=== PATIENT | male | born 1965 | race Caucasian/White ===

== ENCOUNTER 2016-07-11 18:21 | Emergency (ER) | payer SELFPAY ==
[~2016-07-11] VITALS: Ht 175.3 cm; Wt 84.0 kg
[~2016-07-11 18:21] MED LIST: ASPI81TA82 PO; HYDR-3580 PO; PRAV80 PO; RANI150 PO
[2016-07-11 18:24] VITALS: BP 160/100; PULSE 103; RESP 17; TEMP 98.4; O2SAT 99
--- NOTE | 2016-07-11 18:42 | PD ---
HPI . acute t-l spine pain since yesterdal Chief Complaint: Pain: Acute or Chronic Time Seen by Provider: 18:41 Travel History International Travel<30 days: No Contact w/Intl Traveler<30days: No Traveled to known affect area: No History of Present Illness HPI 51-year-old male here with complaints of left sided back pain that occurred yesterday after falling on a lawnmower. Patient says he was outside and accidentally slipped and fell and hit his back on his lawnmower. He is complaining of pain in the left lower thoracic upper lumbar area. It is shifted over to the left. He does not have any spinal process tenderness. He denies any bowel or bladder dysfunction. He tells me that he has a history of chronic back issues and has some bulging discs, but this pain is more on the left side and does not feel similar to his other pain. He tells me that the pain was okay until he started coughing frequently. He does report a long- standing history of smoking. He denies any fever or chills. He has no other complaints. PFSH Past Medical History Blood Disorders: No Cardiovascular Problems: No Diminished Hearing: No Endocrine: No Genitourinary: No Musculoskeletal: No Neurologic: No Psychiatric: No Reproductive: No Respiratory: No Past Surgical History Other Surgery: Yes (CYST REMOVAL) Social History Alcohol Use: Yes (6PK/DAY) Tobacco Use: Yes (1.5 PPD) Substance Use: No Allergies-Medications (Allergen,Severity, Reaction): Coded Allergies: No Known Allergies (Unverified , 02/15/13) Reported Meds & Prescriptions Reported Meds & Active Scripts Active Proair Hfa 8.5 GM Inh (Albuterol Sulfate) 90 Mcg/Act Aer 2 Puff INH Q6H PRN 108 mcg/actuation Robaxin (Methocarbamol) 500 Mg Tab 500 Mg PO TID Prednisone 50 Mg Tab 50 Mg PO DAILY Reported Hydrocodone/Acetaminophen 7.5 mg/325 mg 7.5 Mg/325 Mg Tab 1 Tab PO Q6H PRN Aspir-81 (Aspirin) 81 Mg Tab 81 Mg PO DAILY Zantac 150 Mg Tab (Ranitidine HCl) 150 Mg Tab 150 Mg PO BID Pravachol 80 Mg Tab (Pravastatin Sod) 80 Mg Tab 80 Mg PO DAILY Review of Systems General / Constitutional: No: Fever Eyes: No: Visual changes HENT: No: Headaches Cardiovascular: No: Chest Pain or Discomfort Respiratory: No: Shortness of Breath Gastrointestinal: No: Abdominal Pain Genitourinary: No: Dysuria Musculoskeletal: Positive: Pain (t-l spine) Skin: No Rash Neurologic: No: Weakness Psychiatric: No: Depression Endocrine: No: Polydipsia Hematologic/Lymphatic: No: Easy Bruising Physical Exam Narrative GENERAL: AAO x 3, no acute distress, Well-nourished, well-developed patient. SKIN: Warm and dry. No visible rashes or bruising. no bruising to the back HEAD: Normocephalic and atraumatic. EYES: No scleral icterus. No injection or drainage. ENT: No nasal drainage noted. Mucous membranes pink. Airway patent. NECK: Supple, trachea midline. No JVD. CARDIOVASCULAR: Regular rate and rhythm without murmurs, gallops, or rubs. RESPIRATORY: Breath sounds equal bilaterally. No accessory muscle use. No rhonchi or rales. slight wheeze on expiration. GASTROINTESTINAL: visual inspection normal EXTREMITIES: No cyanosis or edema. ambulatory BACK: No obvious deformity. No CVA tenderness. paraspinal tenderness on the left side lower t spine upper lumbar area. Flexion and extension normal. SLR negative b/l. no spinous process tenderness. NEURO: sensation intact, strength normal PSYCH: AAO x 3, normal affect. Data Data Last Documented VS Vital Signs Date Time Temp Pulse Resp B/P Pulse Ox O2 Delivery O2 Flow Rate FiO2 07/11/16 18:24 98.4 103 17 160/100 99 MDM Medical Decision Making Medical Screen Exam Complete: Yes Emergency Medical Condition: Yes Medical Record Reviewed: Yes Differential Diagnosis muscle strain, lumbago, less likely lumbar radiculopathy Narrative Course In summary this is a 51-year-old male status post fall onto his lawnmower, here with complaints of left mid to low back pain. He does not have any spinal process tenderness. Pain is located in his paraspinal muscles. I have done a thorough examination. Imaging is not indicated. I recommend a course of muscle relaxers to help loosen the sore muscles in this area. He does have what appears to be bronchitis. He has some slight wheezing on examination. I will go ahead and treat him with steroids and albuterol inhaler. I've advised him that he will need follow-up with his primary care provider. Patient verbalized understanding of instructions, questions were answered, and thanked me for their care. I advised them if their condition worsens, please return to the nearest emergency room for further care. Diagnosis Primary Impression: Muscle strain Additional Impression: Bronchitis Patient Instructions: Acute Bronchitis (ED), General Instructions, Muscle Strain (ED) Additional Instructions: As we discussed the cough can last 6-8 weeks. Take medications as prescribed. If you are a smoker, try to quit. Follow up with your primary care provider. If you develop sudden onset or worsening of shortness or breath, please go to the nearest emergency room. Muscle relaxers can cause drowsiness. Do not drive, swim or operate heavy machinery while using these medications. Please return to emergency department if your symptoms return or worsen. Follow up with your primary care provider. Take medications as prescribed. Med/Other Pt SpecificInfo: Prescription(s) given Scripts Albuterol 8.5 GM Inh (Proair Hfa 8.5 GM Inh)90 Mcg/Act Aer2 Puff INH Q6H PRN ( SHORTNESS OF BREATH) #1 INHALER Ref 0 108 mcg/actuation Prov:Michelle Barton MD 07/11/16 Methocarbamol (Robaxin)500 Mg [id number] Mg PO TID #21 TAB Prov:Michelle Barton MD 07/11/16 Prednisone 50 Mg Tab50 Mg PO DAILY #5 TAB Prov:Michelle Barton MD 07/11/16 Disposition: 01 DISCHARGE HOME Condition: Stable Rosio Griffin July 11, 2016 18:42
[2016-07-11] MEDS ORDERED: PRED50 PO (18:46)
[2016-07-11] MEDS ORDERED: ROBA500T PO (18:46)
[2016-07-11] MEDS ORDERED: ALBUAER3 INH (18:51)
== END 2016-07-11 19:24 | disposition home or self-care (01) ==
LOC: NEPK 18:21
DX: S39.012A Strain of muscle, fascia and tendon of lower back, initial encounter (principal); S29.012A Strain of muscle and tendon of back wall of thorax, initial encounter; J40 Bronchitis, not specified as acute or chronic; F17.200 Nicotine dependence, unspecified, uncomplicated; W01.198A Fall on same level from slipping, tripping and stumbling with subsequent striking against other object, initial encounter
CPT/HCPCS: 99283

== ENCOUNTER 2017-06-15 07:43 | Inpatient (IN) | payer SELFPAY ==
[~2017-06-15] VITALS: Ht 180.3 cm; Wt 75.5 kg
[2017-06-15 07:48] VITALS: BP 104/64; PULSE 93; RESP 18; TEMP 97.4; O2SAT 100
[2017-06-15 08:13] LABS: BILIRUBIN, URINE NEG (NEG); BLOOD, URINE NEG (NEG); GLUCOSE,URINE NEG (NEG); KETONE, URINE NEG (NEG); MUCUS URINE MOD /lpf (OCC); NITRITE,URINE NEG (NEG); PH, URINE 5.5 (5.0-8.5); SQUAMOUS EPITHELIAL CELL URINE <1 /hpf (0-5); URINE COLOR YELLOW (YELLW/STRAW); URINE LEUKOCYTE ESTERASE NEG (NEG)
[2017-06-15 08:16] LABS: AUTOMATED NEUTROPHIL # 10.8 TH/MM3 (1.8-7.7); BASOPHIL # 0.1 TH/MM3 (0-0.2); BASOPHIL % 0.6 % (0.0-2.0); EOSINOPHIL # 0.1 TH/MM3 (0-0.4); EOSINOPHIL % 0.9 % (0.0-4.0); HEMATOCRIT 53.4 % (39.0-51.0); HEMOGLOBIN 18.6 GM/DL (13.0-17.0); LYMPH % 14.9 % (9.0-44.0); LYMPHOCYTE # 2.2 TH/MM3 (1.0-4.8); MEAN CELL VOLUME 93.6 FL (80.0-100.0); MEAN CORPUSCULAR HEMOGLOBIN 32.7 PG (27.0-34.0); MEAN CORPUSCULAR HGB CONC 34.9 % (32.0-36.0); MEAN PLATELET VOLUME 8.4 FL (7.0-11.0); MONO % 9.2 % (0.0-8.0); MONOCYTE # 1.3 TH/MM3 (0-0.9); NEUT % 74.4 % (16.0-70.0); PLATELET COUNT 368 TH/MM3 (150-450); RED CELL DISTRIBUTION WIDTH 12.8 % (11.6-17.2); WHITE BLOOD COUNT 14.5 TH/MM3 (4.0-11.0)
[2017-06-15] MEDS ORDERED: blood pressure PO (08:20)
[2017-06-15 08:32] LABS: ALBUMIN 3.9 GM/DL (3.4-5.0); AST (GOT) 16 U/L (15-37); BICARBONATE 22.6 MEQ/L (21.0-32.0); BLOOD UREA NITROGEN 7 MG/DL (7-18); CALCIUM 9.5 MG/DL (8.5-10.1); CHLORIDE 108 MEQ/L (98-107); CREATININE 0.77 MG/DL (0.60-1.30); GLOMERULAR FILTRATION RATE 107 ML/MIN (>89); GLUCOSE,RANDOM 108 MG/DL (74-106); SODIUM (NA) 139 MEQ/L (136-145)
[2017-06-15 08:39] LABS: ALKALINE PHOSPHATASE 69 U/L (45-117); ALT (GPT) 20 U/L (12-78); TOTAL BILIRUBIN ADULT 0.4 MG/DL (0.2-1.0)
--- NOTE | 2017-06-15 08:52 | PD ---
HPI Chief Complaint: Abdominal Pain Time Seen by Provider: 08:10 Travel History International Travel<30 days: No Contact w/Intl Traveler<30days: No Traveled to known affect area: No History of Present Illness HPI Is a 52-year-old man presents to the emergency department complaining of mid and upper abdominal pain. Patient states he started feeling well couple weeks ago. Was feeling much better and then today started having the pain more severe again. Was drinking alcohol daily, but stopped after the pain developed. No nausea or vomiting. Bowel movements been normal. He has not had the pain in the past. No NSAIDs. No tobacco. No history of abdominal surgeries. Pain was severe today and so he came to the emergency department. History Past Medical History Narrative Medical History of daily alcohol use, stopped a couple weeks ago Hypertension Social History Alcohol Use: Yes (6 per day) Tobacco Use: Yes (1 1/2 jaylen per day) Allergies-Medications (Allergen,Severity, Reaction): Coded Allergies: No Known Allergies (Unverified Adverse Reaction, Unknown, 06/15/17) Reported Meds & Prescriptions Reported Meds & Active Scripts Active Reported [blood pressure ] PO BID Review of Systems Except as stated in HPI: all other systems reviewed are Neg Physical Exam Narrative GENERAL: Well-appearing 52-year-old man, no acute distress. SKIN: Focused skin assessment warm/dry. HEAD: Atraumatic. Normocephalic. EYES: Pupils equal and round. No scleral icterus. No injection or drainage. ENT: No nasal bleeding or discharge. Mucous membranes pink and moist. NECK: Trachea midline. No JVD. CARDIOVASCULAR: Regular rate and rhythm. No murmur appreciated. RESPIRATORY: No accessory muscle use. Clear to auscultation. Breath sounds equal bilaterally. GASTROINTESTINAL: Abdomen is flat and soft. There is moderate right lower quadrant tenderness with a little bit of voluntary guarding. No right upper abdominal tenderness. Negative Lopez's. Minimal epigastric tenderness. MUSCULOSKELETAL: No obvious deformities. No clubbing. No cyanosis. No edema. NEUROLOGICAL: Awake and alert. No obvious cranial nerve deficits. Motor grossly within normal limits. Normal speech. PSYCHIATRIC: Appropriate mood and affect; insight and judgment normal. Data Data Last Documented VS Vital Signs Date Time Temp Pulse Resp B/P (MAP) Pulse Ox O2 Delivery O2 Flow Rate FiO2 06/15/17 07:48 97.4 93 18 104/64 (77) 100 Orders Orders Complete Blood Count With Diff (06/15/17 07:53) Comprehensive Metabolic Panel (06/15/17 07:53) Urinalysis - C+S If Indicated (06/15/17 07:53) Lipase (06/15/17 07:53) Iv Access Insert/Monitor (06/15/17 08:11) Ct Abd/Pel W Iv Contrast(Rout) (06/15/17 ) Iohexol 350 Inj (Omnipaque 350 Inj) (06/15/17 09:08) Admit Order (Ed Use Only) (06/15/17 ) Labs Laboratory Tests Test 06/15/17 08:01 White Blood Count 14.5 TH/MM3 Red Blood Count 5.70 MIL/MM3 Hemoglobin 18.6 GM/DL Hematocrit 53.4 % Mean Corpuscular Volume 93.6 FL Mean Corpuscular Hemoglobin 32.7 PG Mean Corpuscular Hemoglobin Concent 34.9 % Red Cell Distribution Width 12.8 % Platelet Count 368 TH/MM3 Mean Platelet Volume 8.4 FL Neutrophils (%) (Auto) 74.4 % Lymphocytes (%) (Auto) 14.9 % Monocytes (%) (Auto) 9.2 % Eosinophils (%) (Auto) 0.9 % Basophils (%) (Auto) 0.6 % Neutrophils # (Auto) 10.8 TH/MM3 Lymphocytes # (Auto) 2.2 TH/MM3 Monocytes # (Auto) 1.3 TH/MM3 Eosinophils # (Auto) 0.1 TH/MM3 Basophils # (Auto) 0.1 TH/MM3 CBC Comment DIFF FINAL Differential Comment Urine Color YELLOW Urine Turbidity CLEAR Urine pH 5.5 Urine Specific [place] 1.020 Urine Protein TRACE mg/dL Urine Glucose (UA) NEG mg/dL Urine Ketones NEG mg/dL Urine Occult Blood NEG Urine Nitrite NEG Urine Bilirubin NEG Urine Urobilinogen 2.0 MG/DL Urine Leukocyte Esterase NEG Urine RBC 2 /hpf Urine WBC 2 /hpf Urine Squamous Epithelial Cells <1 /hpf Urine Mucus MOD /lpf Microscopic Urinalysis Comment CULT NOT INDICATED Blood Urea Nitrogen 7 MG/DL Creatinine 0.77 MG/DL Random Glucose 108 MG/DL Total Protein 8.0 GM/DL Albumin 3.9 GM/DL Calcium Level 9.5 MG/DL Alkaline Phosphatase 69 U/L Aspartate Amino Transf (AST/SGOT) 16 U/L Alanine Aminotransferase (ALT/SGPT) 20 U/L Total Bilirubin 0.4 MG/DL Sodium Level 139 MEQ/L Potassium Level 3.9 MEQ/L Chloride Level 108 MEQ/L Carbon Dioxide Level 22.6 MEQ/L Anion Gap 8 MEQ/L Estimat Glomerular Filtration Rate 107 ML/MIN Lipase 768 U/L [facility] Medical Decision Making Medical Screen Exam Complete: Yes Emergency Medical Condition: Yes Interpretation(s) LABS: CBC remarkable for mild leukocytosis. Hemoglobin is a little bit elevated. CMP is generally unremarkable. Lipase [address] abdomen and pelvis: Abnormally appearing ascending colon, obstructive, more likely, versus inflammatory. Differential Diagnosis Gastritis, pancreatitis, peptic ulcer disease, appendicitis, cholecystitis, other Narrative Course Medical decision making 52-year-old man who by history likely has gastritis or peptic ulcer disease. On exam however he has significant right lower quadrant tenderness concerning for appendicitis. Will check labs, check CT, likely treatment with antacid/PPI. FINAL: CT scan shows distention of the proximal/ascending large bowel with the period of what appears to be transition with some bowel wall dilatation and edema with inflammatory changes proximally. No definite mass seen. Possibly inflammatory versus more likely obstructive. I spoke with Dr. Barriga, radiologist. We will plan on admission for further evaluation, likely GI consult. Diagnosis Primary Impression: Large bowel obstruction Admitting Information Admitting Physician Requests: Admit David Calvin MD Jun 15, 2017 08:52
[2017-06-15] MEDS ORDERED: IOHEXOL 350 MG/ML 10 ML VIAL (for RAD DIAG) IVCONTRAST ONE (09:08)
--- NOTE | 2017-06-15 10:03 | RADRPT ---
EXAM DATE/TIME: 06/15/2017 09:06 [facility] COMPARISON: No previous studies available for comparison. INDICATIONS : Epigastric pain IV CONTRAST: 97 cc Omnipaque 350 (iohexol) IV ORAL CONTRAST: No oral contrast ingested. RADIATION DOSE: 7.23 CTDIvol (mGy) MEDICAL HISTORY : Hypertension. SURGICAL HISTORY : None. ENCOUNTER: Initial ACUITY: 1 day PAIN SCALE: 6/10 LOCATION: upper quadrant TECHNIQUE: Volumetric scanning of the abdomen and pelvis was performed. Using automated exposure control and ad justment of the mA and/or kV according to patient size, radiation dose was kept as low as reasonably achievable to obtain optimal diagnostic quality images. DICOM format image data is available electro nically for review and comparison. FINDINGS: The lung base is are clear. The liver, spleen pancreas and adrenal glands are unremarkable. There is symmetrical renal function with small right renal cyst.. The ascending colon is abnormal with inflammatory changes and bowel wall thickening. This is suspici ous for an inflammatory process such as typhlitis or an obstructive process at the flexure. The area just above this is collapsed and I cannot entirely exclude mass.. I can't seen normal appendix but this be very unusual appearance for such. Pelvic contents are unremarkable. CONCLUSION: Abnormally ascending colon obstructive, most likely versus inflammatory.. There is s ome dilatation with bowel wall thickening. Trace ascites is evident. . Thomas Barriga MD FACR on June 15, 2017 at 9:55 Board Certified Radiologist. This report was verified electronically.
[2017-06-15] MEDS ORDERED: LACTULOSE SYRUP 20 GM/30 ML CUP PO PRN (11:30)
[2017-06-15] MEDS ORDERED: NALOXONE HCL 0.4 MG/ML AMP IV PUSH PRN (11:30)
[2017-06-15] MEDS ORDERED: SODIUM CHLORIDE 0.9% FLUSH 10 ML FLUSH IV FLUSH PRN (11:30)
[2017-06-15] MEDS ORDERED: ONDANSETRON HCL 4 MG/2 ML VIAL IVP PRN (11:30)
[2017-06-15] MEDS ORDERED: BISACODYL 10 MG SUPP RECTAL PRN (11:30)
[2017-06-15] MEDS ORDERED: MAGNESIUM HYDROXIDE SUSP 30 ML CUP PO PRN (11:30)
[2017-06-15] MEDS ORDERED: SENNOSIDES 8.6 MG TAB PO PRN (11:30)
--- NOTE | 2017-06-15 12:34 | PD.CONS ---
HPI History of Present Illness This is a 52 year old male who presented to ER with abd pain. The pain is in the umbilical region, does not radiate. Onset 2 weeks ago and was severe, lessened, and then worsened again last night. Pain is worse at night and worse after eating. he has had a few episodes loose stool. He has noticed some black stool intermittently. No n/v, chance blood in stool, significant unintended weight loss. Never had pain like this before. hehad a formed BM yesterday. He is passing flatus. Never colonoscopy or EGD. PFSH Past Medical History HTN Past Surgical History carotid endarterectomy Coded Allergies: No Known Allergies (Unverified Adverse Reaction, Unknown, 06/15/17) Family History denies Social History etoh - daily until 2 weeks per day, 6pk or more per day smokes 1 ppd denies illicit drugs Review of Systems Constitutional: DENIES: Fever Endocrine: DENIES: Polydipsia Eyes: DENIES: Blurred vision Ears, nose, mouth, throat: DENIES: Hearing loss Respiratory: DENIES: Cough Cardiovascular: DENIES: Chest pain Gastrointestinal: COMPLAINS OF: Abdominal pain, Black stools, DENIES: Bloody stools, Nausea, Vomiting, Hematemesis Genitourinary: DENIES: Hematuria Musculoskeletal: DENIES: Joint Swelling Integumentary: DENIES: Abnormal pigmentation Hematologic/lymphatic: DENIES: Bruising Immunologic/allergic: DENIES: Eczema Neurologic: DENIES: Abnormal gait Psychiatric: DENIES: Confusion GI Exam Vitals I&O Vital Signs Date Time Temp Pulse Resp B/P (MAP) Pulse Ox O2 Delivery O2 Flow Rate FiO2 06/15/17 07:48 97.4 93 18 104/64 (77) 100 Imaging Last Impressions Abdomen/Pelvis CT 06/15/17 0000 Signed Impressions: Service Date/Time: Thursday, June 15, 2017 09:06 - CONCLUSION: Abnormally ascending colon obstructive, most likely versus inflammatory.. There is some dilatation with bowel wall thickening. Trace ascites is evident. . Thomas Barriga MD FACR Laboratory Test 06/15/17 08:01 White Blood Count 14.5 TH/MM3 Red Blood Count 5.70 MIL/MM3 Hemoglobin 18.6 GM/DL Hematocrit 53.4 % Mean Corpuscular Volume 93.6 FL Mean Corpuscular Hemoglobin 32.7 PG Mean Corpuscular Hemoglobin Concent 34.9 % Red Cell Distribution Width 12.8 % Platelet Count 368 TH/MM3 Mean Platelet Volume 8.4 FL Neutrophils (%) (Auto) 74.4 % Lymphocytes (%) (Auto) 14.9 % Monocytes (%) (Auto) 9.2 % Eosinophils (%) (Auto) 0.9 % Basophils (%) (Auto) 0.6 % Neutrophils # (Auto) 10.8 TH/MM3 Lymphocytes # (Auto) 2.2 TH/MM3 Monocytes # (Auto) 1.3 TH/MM3 Eosinophils # (Auto) 0.1 TH/MM3 Basophils # (Auto) 0.1 TH/MM3 CBC Comment DIFF FINAL Differential Comment Urine Color YELLOW Urine Turbidity CLEAR Urine pH 5.5 Urine Specific [place] 1.020 Urine Protein TRACE mg/dL Urine Glucose (UA) NEG mg/dL Urine Ketones NEG mg/dL Urine Occult Blood NEG Urine Nitrite NEG Urine Bilirubin NEG Urine Urobilinogen 2.0 MG/DL Urine Leukocyte Esterase NEG Urine RBC 2 /hpf Urine WBC 2 /hpf Urine Squamous Epithelial Cells <1 /hpf Urine Mucus MOD /lpf Microscopic Urinalysis Comment CULT NOT INDICATED Blood Urea Nitrogen 7 MG/DL Creatinine 0.77 MG/DL Random Glucose 108 MG/DL Total Protein 8.0 GM/DL Albumin 3.9 GM/DL Calcium Level 9.5 MG/DL Alkaline Phosphatase 69 U/L Aspartate Amino Transf (AST/SGOT) 16 U/L Alanine Aminotransferase (ALT/SGPT) 20 U/L Total Bilirubin 0.4 MG/DL Sodium Level 139 MEQ/L Potassium Level 3.9 MEQ/L Chloride Level 108 MEQ/L Carbon Dioxide Level 22.6 MEQ/L Anion Gap 8 MEQ/L Estimat Glomerular Filtration Rate 107 ML/MIN Lipase 768 U/L Physical Examination HEENT: PERRL; normocephalic; atraumatic; no jaundice. CHEST: CTA, diminished CARDIAC: RRR ABDOMEN: Soft, nondistended, nontender; no hepatosplenomegaly; bowel sounds are present in all four quadrants. EXTREMITIES: No clubbing, cyanosis, or edema. SKIN: Normal; no rash; no jaundice. DIRECTOR OF MEDIA: No focal deficits; alert and oriented times three. Assessment and Plan Plan ASSESSMENT - abd pain, abnormal imaging - onset 2 weeks ago. recent worsening. umbilical region. intermittnet, worse after eating, worse at night. CT showed abnormal ascending colon, inflammation vs obstructive process. never had colonoscopy or EGD + BM yesterday formed, + flatus - ? melena - pt admits few episodes black tarry stool in last few weeks no anemia currently - leukocytosis - wbc 14.5 on admission PLAN - EGD and colonoscopy in am - obtain consent - clears today - NPO after midnight - mg citrate prep - monitor lipase - monitor labs - pain mgmt - further recs to follow pt seen by myself and Dr Jara and this note is on her behalf Eva Villarreal Jun 15, 2017 12:34
[2017-06-15 12:42] VITALS: BP 137/98; PULSE 86; RESP 16; O2SAT 97
[2017-06-15] MEDS: ENOXAPARIN SODIUM 40 MG/0.4 ML SYRINGE SQ SCH (13:44)
[2017-06-15 16:00] VITALS: BP 97/68; PULSE 84; RESP 16; TEMP 97.8; O2SAT 98
[2017-06-15] MEDS ORDERED: MAGNESIUM CITRATE SOLN 300 ML BTL PO ONE ×2 (16:00→18:00)
[2017-06-15] MEDS ORDERED: LISI-515 PO ×2 (17:27→17:30)
[2017-06-15] MEDS ORDERED: AMLO5TAB2 PO (17:32)
[2017-06-15 17:39] VITALS: O2SAT 97
--- NOTE | 2017-06-15 18:20 | HHI.HP ---
[facility] Service [facility] Primary Care Physician Unknown Admission Diagnosis Large bowel obstruction versus colitis Diagnoses: Travel History International Travel<30 Days: No Contact w/Intl Traveler <30 Da: No Traveled to Known Affected Are: No History of Present Illness 52-year-old male who presents to the ER today complaining of central and right- sided abdominal pain. He denies any fevers denies nausea, denies vomiting. He experienced a similar pain about 2 weeks ago and stopped drinking alcohol at that time. The pain subsided but has returned today worse than ever. He has no history of previous surgeries. 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 He denies any trauma to that area. Review of Systems Constitutional: DENIES: Diaphoretic episodes, Fatigue, Fever, Weight gain, Weight loss, Chills, Dizziness Eyes: DENIES: Blurred vision, Diplopia, Eye inflammation, Eye pain Ears, nose, mouth, throat: DENIES: Tinnitus, Hearing loss, Vertigo, Ear Pain, Running Nose, Epistaxis, Sinus Pain Respiratory: DENIES: Apneas, Cough, Snoring, Wheezing, Hemoptysis, Sputum production Cardiovascular: DENIES: Chest pain, Palpitations, Syncope, Dyspnea on Exertion Gastrointestinal: COMPLAINS OF: Abdominal pain, DENIES: Black stools, Bloody stools, Constipation, Diarrhea, Nausea, Vomiting, Difficulty Swallowing, Anorexia Genitourinary: DENIES: Urinary frequency, Urinary incontinence Neurologic: DENIES: Abnormal gait, Headache, Localized weakness, Paresthesias, Seizures Psychiatric: DENIES: Anxiety, Confusion, Mood changes, Depression Past Family Social History Past Medical History HTN Past Surgical History carotid endarterectomy Allergies: Coded Allergies: No Known Allergies (Unverified Allergy, Unknown, 06/15/17) Family History denies Social History Drinks 6-8 beers per day, but quit 2 weeks ago smokes 1 ppd denies illicit drugs Physical Exam Vital Signs Vital Signs Date Time Temp Pulse Resp B/P (MAP) Pulse Ox O2 Delivery O2 Flow Rate FiO2 06/15/17 17:39 97 21 4/18/18 16:00 97.8 84 16 97/68 (78) 98 06/15/17 15:24 (111) 06/15/17 12:42 86 16 137/98 (111) 97 06/15/17 07:48 97.4 93 18 104/64 (77) 100 Physical Exam GENERAL: This is a well-nourished, well-developed patient, in no apparent distress. SKIN: No rashes, ecchymoses or lesions. Cool and dry. Very tanned skin HEAD: Atraumatic. Normocephalic. No temporal or scalp tenderness. EYES: Pupils equal round and reactive. Extraocular motions intact. No scleral icterus. No injection or drainage. ENT: Nose without bleeding, purulent drainage or septal hematoma. Throat without erythema, tonsillar hypertrophy or exudate. Uvula midline. Airway patent. NECK: Trachea midline. No JVD or lymphadenopathy. Supple, nontender, no meningeal signs. CARDIOVASCULAR: Regular rate and rhythm without murmurs, gallops, or rubs. RESPIRATORY: Clear to auscultation. Breath sounds equal bilaterally. No wheezes , rales, or rhonchi. GASTROINTESTINAL: Abdomen soft, tender to palpation diffusely with focus on right lower quadrant, nonacute abdomen, nondistended. No hepato-splenomegaly, or palpable masses. No guarding. MUSCULOSKELETAL: Extremities without clubbing, cyanosis, or edema. No joint tenderness, effusion, or edema noted. No calf tenderness. Negative Homans sign bilaterally. NEUROLOGICAL: Awake and alert. Cranial nerves II through XII intact. Motor and sensory grossly within normal limits. Five out of 5 muscle strength in all muscle groups. Normal speech. Laboratory Laboratory Tests Test 06/15/17 08:01 06/15/17 14:51 White Blood Count 14.5 Red Blood Count 5.70 Hemoglobin 18.6 Hematocrit 53.4 Mean Corpuscular Volume 93.6 Mean Corpuscular Hemoglobin 32.7 Mean Corpuscular Hemoglobin Concent 34.9 Red Cell Distribution Width 12.8 Platelet Count 368 Mean Platelet Volume 8.4 Neutrophils (%) (Auto) 74.4 Lymphocytes (%) (Auto) 14.9 Monocytes (%) (Auto) 9.2 Eosinophils (%) (Auto) 0.9 Basophils (%) (Auto) 0.6 Neutrophils # (Auto) 10.8 Lymphocytes # (Auto) 2.2 Monocytes # (Auto) 1.3 Eosinophils # (Auto) 0.1 Basophils # (Auto) 0.1 CBC Comment DIFF FINAL Differential Comment Urine Color YELLOW Urine Turbidity CLEAR Urine pH 5.5 Urine Specific [place] 1.020 Urine Protein TRACE Urine Glucose (UA) NEG Urine Ketones NEG Urine Occult Blood NEG Urine Nitrite NEG Urine Bilirubin NEG Urine Urobilinogen 2.0 Urine Leukocyte Esterase NEG Urine RBC 2 Urine WBC 2 Urine Squamous Epithelial Cells <1 Urine Mucus MOD Microscopic Urinalysis Comment CULT NOT INDICATED Blood Urea Nitrogen 7 Creatinine 0.77 Random Glucose 108 Total Protein 8.0 Albumin 3.9 Calcium Level 9.5 Alkaline Phosphatase 69 Aspartate Amino Transf (AST/SGOT) 16 Alanine Aminotransferase (ALT/SGPT) 20 Total Bilirubin 0.4 Sodium Level 139 Potassium Level 3.9 Chloride Level 108 Carbon Dioxide Level 22.6 Anion Gap 8 Estimat Glomerular Filtration Rate 107 Lipase 768 106 Result Diagram: 06/15/1780006/15/17 08 Caprini VTE Risk Assessment Caprini VTE Risk Assessment: Mod/High Risk (score >= 2) Caprini Risk Assessment Model Point Value = 1 Point Value = 2 Point Value = 3 Point Value = 5 Age 41-60 Minor surgery BMI > 25 kg/m2 Swollen legs Varicose veins or History of unexplained or recurrent spontaneous Oral contraceptives or hormone replacement Sepsis (< 1 month) Serious lung disease, including pneumonia (< 1 month) Abnormal pulmonary function Acute myocardial infarction Congestive heart failure (< 1 month) History of inflammatory bowel disease Medical patient at bed rest Age 61-74 Arthroscopic surgery Major open surgery (> 45 min) Laparoscopic surgery (> 45 min) Malignancy Confined to bed (> 72 hours) Immobilizing plaster cast Central venous access Age >= 75 History of VTE Family history of VTE Factor V Leiden Prothrombin [id number] Lupus anticoagulant Anticardiolipin antibodies Elevated serum homocysteine Heparin-induced thrombocytopenia Other congenital or acquired thrombophilia Stroke (< 1 month) Elective arthroplasty Hip, pelvis, or leg fracture Acute spinal cord injury (< 1 month) Prophylaxis Regimen Total Risk Factor Score Risk Level Prophylaxis Regimen 0-1 Low Early ambulation 2 Moderate Order ONE of the following: *Sequential Compression Device (SCD) *Heparin 5000 units SQ BID 3-4 Higher Order ONE of the following medications: *Heparin 5000 units SQ TID *Enoxaparin/Lovenox 40 mg SQ daily (WT < 150 kg, CrCl > 30 mL/min) *Enoxaparin/Lovenox 30 mg SQ daily (WT < 150 kg, CrCl > 10-29 mL/min) *Enoxaparin/Lovenox 30 mg SQ BID (WT < 150 kg, CrCl > 30 mL/min) AND/OR *Sequential Compression Device (SCD) 5 or more Highest Order ONE of the following medications: *Heparin 5000 units SQ TID (Preferred with Epidurals) *Enoxaparin/Lovenox 40 mg SQ daily (WT < 150 kg, CrCl > 30 mL/min) *Enoxaparin/Lovenox 30 mg SQ daily (WT < 150 kg, CrCl > 10-29 mL/min) *Enoxaparin/Lovenox 30 mg SQ BID (WT < 150 kg, CrCl > 30 mL/min) AND *Sequential Compression Device (SCD) Assessment and Plan Problem List: (1) Abdominal pain ICD Code: R10.9 - Unspecified abdominal pain Assessment and Plan Right sided abdominal pain Thickening of the ascending colon wall seen on CT Consider colitis, alternatively rule out carcinoma Morphine for pain control Stool cultures ordered Patient undergoing bowel prep for planned EGD and colonoscopy tomorrow Gastroenterology consulted Leukocytosis The supports infectious causes We will cover broadly with Flagyl Primary team to add further antibiotics as information presents Hypertension Continue home medications when p.o. resumed DVT prophylaxis Lovenox Physician Certification 2 Midnight Certification Type: Admission for Inpatient Services Order for Inpatient Services The services are ordered in accordance with Medicare regulations or non- Medicare payer requirements, as applicable. In the case of services not specified as inpatient-only, they are appropriately provided as inpatient services in accordance with the 2-midnight benchmark. Estimated LOS (days): 5 days is the estimated time the patient will need to remain in the hospital, assuming treatment plan goals are met and no additional complications. Post-Hospital Plan: Home Armin Cohn MD Jun 15, 2017 18:20
[2017-06-15 20:00] VITALS: BP 98/68; PULSE 83; RESP 20; TEMP 97.8; O2SAT 96
[2017-06-15] MEDS: SODIUM CHLORIDE 0.9% FLUSH 10 ML FLUSH IV FLUSH SCH (21:00)
[2017-06-16] VITALS: BP 96/70; PULSE 78; RESP 20; TEMP 98.1; O2SAT 96
[2017-06-16] MEDS ORDERED: SODIUM CHLORID 0.9% 500 ML IV PRN (03:45)
[2017-06-16] MEDS ORDERED: CHLORHEXIDINE GLUCONATE 2 % 1 PACK (2 CLOTHS) TOPICAL PRN (03:45)
[2017-06-16] MEDS ORDERED: LACTATED RINGER'S 1000 ML IV PRN (03:45)
[2017-06-16] MEDS ORDERED: POVIDONE IODINE 5% (ANTISEPSIS KIT) 4 APPLICATIONS EACH NARE PRN (03:45)
[2017-06-16 07:50] LABS: BASOPHIL # 0.1 TH/MM3 (0-0.2); BASOPHIL % 1.4 % (0.0-2.0); EOSINOPHIL # 0.2 TH/MM3 (0-0.4); EOSINOPHIL % 1.6 % (0.0-4.0); HEMATOCRIT 48.1 % (39.0-51.0); HEMOGLOBIN 16.6 GM/DL (13.0-17.0); LYMPH % 26.7 % (9.0-44.0); LYMPHOCYTE # 2.7 TH/MM3 (1.0-4.8); MEAN CELL VOLUME 94.3 FL (80.0-100.0); MEAN CORPUSCULAR HEMOGLOBIN 32.6 PG (27.0-34.0); MEAN CORPUSCULAR HGB CONC 34.6 % (32.0-36.0); MEAN PLATELET VOLUME 8.6 FL (7.0-11.0); MONO % 11.9 % (0.0-8.0); MONOCYTE # 1.2 TH/MM3 (0-0.9); NEUT % 58.4 % (16.0-70.0); PLATELET COUNT 333 TH/MM3 (150-450); RED CELL DISTRIBUTION WIDTH 12.8 % (11.6-17.2); WHITE BLOOD COUNT 10.2 TH/MM3 (4.0-11.0)
[2017-06-16 07:54] LABS: PROTHROMBIN TIME - PATIENT 10.4 SEC (9.8-11.6)
[2017-06-16 08:00] VITALS: BP 100/66; PULSE 90; RESP 18; TEMP 97.8; O2SAT 93
[2017-06-16 08:10] LABS: BICARBONATE 26.9 MEQ/L (21.0-32.0); CALCIUM 8.9 MG/DL (8.5-10.1); CREATININE 0.73 MG/DL (0.60-1.30)
[2017-06-16] MEDS: SODIUM CHLORIDE 0.9% FLUSH 10 ML FLUSH IV FLUSH SCH ×2 (09:07→20:21)
--- NOTE | 2017-06-16 10:33 | GIPROC ---
[facility] [address] [facility]. [facility], [address] COLONOSCOPY PROCEDURE REPORT EXAM DATE: 06/16/2017 PATIENT NAME: Dami Smallwood MR #: [id number] BIRTHDATE: 1965 ENDOSCOPIST: Bianka Jara MD ORDER #: [id number] CNS: Sang Antonio and Jyothi Nick STATUS: inpatient INDICATIONS: The patient is a 52 yr old male here for a colonoscopy due to abdominal pain, abnormal ct PROCEDURE PERFORMED: Colonoscopy with biopsy MEDICATIONS: None and Per Anesthesia. PREP QUALITY: good PREP TYPE:Other: ESTIMATED BLOOD LOSS: None CONSENT: The patient understands the risks and benefits of the procedure and understands that these risks include, but are not limited to: sedation, allergic reaction, infection, perforation and/or bleeding. Alternative means of evaluation and treatment include, among others: physical exam, x-rays, and/or surgical intervention. The patient elects to proceed with this endoscopic procedure. medical equipment was checked for proper function. Hand hygiene and appropriate measures for infection prevention was taken. After the risks, benefits and alternatives of the procedure were thoroughly explained, Informed consent was verified, confirmed and timeout was successfully executed by the treatment team. A digital exam revealed external hemorrhoids The Pentax EC-3490Li endoscope was introduced through the anus and advanced to the cecum, which was identified by both the appendix and ileocecal valve. The instrument was then slowly withdrawn as the colon was fully examined. COLON FINDINGS: Obstructive mass ascending, could not pass scope, indurated-multiple biopsies done. Retroflexed views revealed internal hemorrhoids and Retroflexed views revealed small internal hemorrhoids The scope was then completely withdrawn from the patient and the procedure terminated. PROCEDURE WITHDRAWAL TIME:6minutes ADVERSE EVENTS: There were no complications. IMPRESSIONS: 1. Obstructive mass ascending, could not pass scope, indurated-multiple biopsies done 2. Retroflexed views revealed internal hemorrhoids 3. Retroflexed views revealed small internal hemorrhoids 4. Revealed external hemorrhoids RECOMMENDATIONS: Clear liquid diet cea level consult surgery family screening for colon cancer RECALL: Return 3 months Colonoscopy pending surgical consult Bianka Jara MD eSigned: Bianka Jara MD 06/16/2017 10:32 AM cc: PATIENT NAME: Dami Smallwood MR#: [id number]
--- NOTE | 2017-06-16 10:35 | GIPROC ---
[facility] [address] [facility]. [facility], [address] EGD PROCEDURE REPORT EXAM DATE: 06/16/2017 PATIENT NAME: Dami Smallwood MR #: [id number] BIRTHDATE: 1965 ATTENDING: Bianka Jara MD ORDER #: [id number] MANAGER PRODUCT DESIGN: Sang Antonio and Jyothi Nick STATUS: inpatient INDICATIONS: The patient is a 52 yr old male here for an EGD due to abdominal pain, abnormal ct PROCEDURE PERFORMED: EGD w/ biopsy MEDICATIONS: None and Per Anesthesia. TOPICAL ANESTHETIC: none CONSENT: The patient understands the risks and benefits of the procedure and understands that these risks include, but are not limited to: sedation, allergic reaction, infection, perforation and/or bleeding. Alternative means of evaluation and treatment include, among others: physical exam, x-rays, and/or surgical intervention. The patient elects to proceed with this endoscopic procedure. medical equipment was checked for proper function. Hand hygiene and appropriate measures for infection prevention was taken. After the risks, benefits and alternatives of the procedure were thoroughly explained, Informed consent was verified, confirmed and timeout was successfully executed by the treatment team. The patient was anesthetized with topical anesthesia and the EC-[id number] (Pedi C) endoscope was introduced through the mouth and advanced to the second portion of the duodenum. Retroflexed views revealed a hiatal hernia The gastroscope was then slowly withdrawn and removed. Duodenitis duodenal bulb-biopsy gastritis antrum-biopsy esophagitis dsital esophagus-biopsy. ADVERSE EVENTS: There were no complications. IMPRESSIONS: 1. Duodenitis duodenal bulb-biopsy gastritis antrum-biopsy esophagitis dsital esophagus-biopsy 2. Retroflexed views revealed a hiatal hernia RECOMMENDATIONS: 1. Await biopsy results. Biopsy results will not be ready for 7-10 days. If you don't hear from us in two weeks, call our office for biopsy results. 2. Anti-reflux regimen 3. Continue PPI 4. Avoid NSAIDS PATIENT CONDITION: stable DISPOSITION: Inpatient REPEAT EXAM: Return 1 year EGD Bainka Jara MD eSigned: Bianka Jara MD 06/16/2017 10:34 AM cc: PATIENT NAME: Dami Smallwood MR#: [id number]
[2017-06-16] MEDS ORDERED: DO NOT ADM ANY ANTICOAGULANT DRUGS PRN (11:30)
[2017-06-16 12:00] VITALS: BP 92/66; PULSE 67; RESP 16; TEMP 97.4; O2SAT 94
[2017-06-16] MEDS ORDERED: PROPOFOL 200 MG/20 ML AMP IV ONE (12:00)
--- NOTE | 2017-06-16 12:07 | HHI.PR ---
Subjective Remarks Large bowel obstruction found to be related to an obstructing mass on colonoscopy. Biopsies have been taken. General surgery consulted. Objective Vital Signs Date Time Temp Pulse Resp B/P (MAP) Pulse Ox O2 Delivery O2 Flow Rate FiO2 06/16/17 10:45 68 16 119/66 (83) 96 06/16/17 10:36 97.0 67 16 125/81 (96) 95 06/16/17 09:25 71 16 140/82 (101) 96 06/16/17 08:00 97.8 90 18 100/66 (77) 93 06/16/17 00:00 98.1 78 20 96/70 (79) 96 06/15/17 20:00 97.8 83 20 98/68 (78) 96 06/15/17 17:39 97 21 06/15/17 16:00 97.8 84 16 97/68 (78) 98 06/15/17 15:24 (111) 06/15/17 12:42 86 16 137/98 (111) 97 I/O 06/15/17 06/15/17 06/15/17 06/16/17 06/16/17 06/16/17 07:00 15:00 23:00 07:00 15:00 23:00 Intake Total 200 ml 320 ml 200 ml Balance 200 ml 320 ml 200 ml Intake Oral 200 ml 320 ml IV Total 0 ml Other 200 ml # Voids 1 2 # Bowel Movements 1 Result Diagram: 06/16/1748 06/16/17 0648 Objective Remarks GENERAL: NAD, A&Ox3 HEAD: Normocephalic. NECK: Supple, trachea midline. No lymphadenopathy. EYES: No scleral icterus. No injection or drainage. CARDIOVASCULAR: Regular rate and rhythm without murmurs, gallops, or rubs. RESPIRATORY: Breath sounds equal bilaterally. No accessory muscle use. GASTROINTESTINAL: Abdomen soft, non-tender, nondistended. MUSCULOSKELETAL: No cyanosis, or edema. SKIN: Warm and dry. NEURO: No focal neurological deficitis. A/P Problem List: (1) Abdominal pain ICD Code: R10.9 - Unspecified abdominal pain (2) Large bowel obstruction ICD Code: K56.609 - Unspecified intestinal obstruction, unspecified as to partial versus complete obstruction Status: Acute Assessment and Plan 52-year-old male admitted secondary to bowel obstruction, discovered to be related to an obstructing colon mass. Right sided abdominal pain Obstructing colon mass General surgery consulted Continue pain treatments as needed Follow labs including CEA Leukocytosis Continue Flagyl Follow CBC Hypertension Continue baseline treatment Follow blood pressures Adjust treatments as needed DVT prophylaxis Eric Baez MD Jun 16, 2017 12:07
[2017-06-16] MEDS ORDERED: NICOTINE 21 MG/24 HR PATCH T-DERMAL ONE (12:15)
[2017-06-16] MEDS: ENOXAPARIN SODIUM 40 MG/0.4 ML SYRINGE SQ SCH (12:59)
--- NOTE | 2017-06-16 13:31 | EKG ---
Date Performed: 06/16/2017 Time Performed: 04:25:34 PTAGE: 52 years EKG: Sinus rhythm Normal ECG Since the PREVIOUS TRACING , no significant change noted PREVIOUS TRACIN02/16/2013 21.50 DOCTOR: Avinash Simmons Interpretating Date/Time 06/16/2017 13:31:03
[2017-06-16 16:00] VITALS: BP 123/87; PULSE 111; RESP 16; TEMP 98.1; O2SAT 93
--- NOTE | 2017-06-16 16:56 | PD.CONS ---
HPI Service General surgery Consult Requested By Dr. Jara Reason for Consult Obstructing ascending colon mass Primary Care Physician Unknown History of Present Illness The patient is a 52-year-old male who presented with mid abdominal pain associated with difficulty tolerating oral intake. The same thing occurred about 2 weeks ago at which time he stopped drinking alcohol. For about 2 weeks he has had blood in his stool. He relates that prior to 2 weeks ago his only noticeable symptom was constipation. Relates 5-10 pound weight loss recently. He had leukocytosis at the time of presentation. CT of the abdomen and pelvis showed significantly dilated a sending colon with some surrounding inflammatory changes of unknown etiology. He then underwent colonoscopy by Dr. Jara which revealed an obstructing mass in the ascending colon most likely consistent with cancer. Biopsies are pending. Review of Systems Constitutional: COMPLAINS OF: Weight loss, DENIES: Fever, Chills Eyes: DENIES: Eye inflammation, Eye pain Ears, nose, mouth, throat: DENIES: Oral lesions, Throat pain Respiratory: DENIES: Cough, Shortness of breath Cardiovascular: DENIES: Chest pain, Palpitations Gastrointestinal: COMPLAINS OF: Abdominal pain, Constipation Musculoskeletal: DENIES: Back pain, Neck pain Integumentary: DENIES: Pruritus, Rash Neurologic: DENIES: Paresthesias, Seizures Past Family Social History Past Medical History Hypertension Small CVA or TIA Past Surgical History Carotid endarterectomy Reported Medications Reported Meds & Active Scripts Active Reported Amlodipine (Amlodipine Besylate) 5 Mg Tab 5 Mg PO DAILY@0700 Lisinopril 20 Mg Tab 20 Mg PO DAILY@1700 [blood pressure ] PO BID Allergies: Coded Allergies: No Known Allergies (Unverified Allergy, Unknown, 06/15/17) Active Ordered Medications Current Medications Medications (Trade) Dose Ordered Sig/Brianna Route Start Time Stop Time Status Last Admin (NS Flush) 2 ml UNSCH PRN IV FLUSH 06/15/17 11:30 (NS Flush) 2 ml BID IV FLUSH 06/15/17 21:00 06/16/17 09:07 (Zofran Inj) 4 mg Q6H PRN IVP 06/15/17 11:30 06/15/17 17:24 (Lovenox Inj) 40 mg Q24H SQ 06/15/17 13:00 06/16/17 12:59 (Narcan Inj) 0.4 mg UNSCH PRN IV PUSH 06/15/17 11:30 (Milk Of Magnesia Liq) 30 ml Q12H PRN PO 06/15/17 11:30 (Senokot) 17.2 mg Q12H PRN PO 06/15/17 11:30 (Dulcolax Supp) 10 mg DAILY PRN RECTAL 06/15/17 11:30 (Lactulose Liq) 30 ml DAILY PRN PO 06/15/17 11:30 (Morphine Inj) 2 mg Q4H PRN IV PUSH 06/15/17 11:30 Lactated Ringer's 1,000 ml @ 30 mls/hr Q24H PRN IV 06/16/17 03:45 06/19/17 03:44 06/16/17 09:22 Sodium Chloride 500 ml @ 30 mls/hr [id number] PRN IV 06/16/17 03:45 06/19/17 03:44 (Betadine 5% Antisepsis Kit) 1 applic [employer] PRN EACH NARE 06/16/17 03:45 06/19/17 03:44 (Chlorhexidine 2% Cloth) 3 pack [employer] PRN TOPICAL 06/16/17 03:45 06/19/17 03:44 Miscellaneous Information ALL NURSING DEPARTME... UNSCH PRN .XX 06/16/17 11:30 06/17/17 11:29 (Norvasc) 5 mg DAILY@0700 PO 06/17/17 07:00 (Prinivil) 20 mg DAILY@1700 PO 06/16/17 17:00 (Habitrol 21 Mg Patch.24 Hr) 1 patch DAILY T-DERMAL 06/17/17 09:00 Miscellaneous Information 1 DAILY T-DERMAL 06/17/17 09:00 Family History Noncontributory Social History 6-8 beers daily but none for the last 2 weeks Smokes 1 pack of cigarettes daily No illicit drug use. Physical Exam Vital Signs Vital Signs Date Time Temp Pulse Resp B/P (MAP) Pulse Ox O2 Delivery O2 Flow Rate FiO2 06/16/17 12:00 97.4 67 16 92/66 (75) 94 06/16/17 10:45 68 16 119/66 (83) 96 06/16/17 10:36 97.0 67 16 125/81 (96) 95 06/16/17 09:25 71 16 140/82 (101) 96 06/16/17 08:00 97.8 90 18 100/66 (77) 93 06/16/17 00:00 98.1 78 20 96/70 (79) 96 06/15/17 20:00 97.8 83 20 98/68 (78) 96 06/15/17 17:39 97 21 Physical Exam GENERAL: Awake and alert. No acute distress. Cooperative. HEAD: Normocephalic. Atraumatic. EYES: Pupils equal round and reactive to light bilaterally. No scleral icterus. ENT: Moist oral mucosa. NECK: Trachea midline. CHEST: Nonlabored breathing. No respiratory distress. CARDIOVASCULAR: Regular rate and rhythm. ABDOMEN: Mild right-sided tenderness. Nondistended and soft. EXTREMITIES: No cyanosis or edema. SKIN: Warm, dry, nonjaundiced. Laboratory Laboratory Tests Test 06/15/17 22:30 06/16/17 06:48 06/16/17 12:27 Eosinophil Stool Smear NONE SEEN White Blood Count 10.2 Red Blood Count 5.10 Hemoglobin 16.6 Hematocrit 48.1 Mean Corpuscular Volume 94.3 Mean Corpuscular Hemoglobin 32.6 Mean Corpuscular Hemoglobin Concent 34.6 Red Cell Distribution Width 12.8 Platelet Count 333 Mean Platelet Volume 8.6 Neutrophils (%) (Auto) 58.4 Lymphocytes (%) (Auto) 26.7 Monocytes (%) (Auto) 11.9 Eosinophils (%) (Auto) 1.6 Basophils (%) (Auto) 1.4 Neutrophils # (Auto) 6.0 Lymphocytes # (Auto) 2.7 Monocytes # (Auto) 1.2 Eosinophils # (Auto) 0.2 Basophils # (Auto) 0.1 CBC Comment DIFF FINAL Differential Comment Prothrombin Time 10.4 Prothromb Time International Ratio 1.0 Blood Urea Nitrogen 8 Creatinine 0.73 Random Glucose 90 Calcium Level 8.9 Sodium Level 138 Potassium Level 4.0 Chloride Level 104 Carbon Dioxide Level 26.9 Anion Gap 7 Estimat Glomerular Filtration Rate 114 Lipase 72 Carcinoembryonic Antigen 1.1 Date/Time Source Procedure Growth Status 06/15/17 22:30 Stool Stool Cryptosporidium Exam - Final NEGATIVE - NO CRYPTOSPORIDIUM ANTIGEN... Complete 06/15/17 22:30 Stool Stool Stool Pus (RIGOBERTO) - Final NO WBC'S SEEN Complete 06/15/17 22:30 Stool Stool Giardia Antigen (RIGOBERTO) - Final NEGATIVE - NO GIARDIA ANTIGEN DETECTE... Complete Result Diagram: 06/16/17 0648 06/16/17 0648 Imaging Last Impressions Abdomen/Pelvis CT 06/15/17 0000 Signed Impressions: Service Date/Time: Thursday, June 15, 2017 09:06 - CONCLUSION: Abnormally ascending colon obstructive, most likely versus inflammatory.. There is some dilatation with bowel wall thickening. Trace ascites is evident. . Thomas Barriga MD FACR Assessment and Plan Assessment and Plan 52 yo M with obstructing ascending colon mass s/p colonoscopy, almost certainly cancer. Plan lap or robot assisted right colectomy early next week. CT abdomen and pelvis shows no evidence of metastatic disease. I discussed the case in detail with the patient his and other family members including likely diagnosis and details of surgery. Related risks such as anastomotic leak. All questions answered to the best of my ability. MitchellTejinder MD Jun 16, 2017 16:56
[2017-06-16] MEDS: LISINOPRIL 20 MG TAB PO SCH (17:15)
[2017-06-16 20:00] VITALS: BP 109/85; PULSE 75; RESP 18; TEMP 97.6; O2SAT 96
[2017-06-16] MEDS: MORPHINE SULFATE 2 MG/ML SYRINGE IV PUSH PRN (20:21)
[2017-06-17] VITALS: BP 119/74; PULSE 70; RESP 18; TEMP 97.8; O2SAT 95
[2017-06-17] MEDS: amLODIPine BESYLATE 5 MG TAB PO SCH (06:28)
[2017-06-17 07:43] LABS: AUTOMATED NEUTROPHIL # 5.4 TH/MM3 (1.8-7.7); BASOPHIL # 0.1 TH/MM3 (0-0.2); BASOPHIL % 1.4 % (0.0-2.0); EOSINOPHIL # 0.2 TH/MM3 (0-0.4); EOSINOPHIL % 2.4 % (0.0-4.0); HEMATOCRIT 45.6 % (39.0-51.0); HEMOGLOBIN 15.8 GM/DL (13.0-17.0); LYMPH % 28.7 % (9.0-44.0); LYMPHOCYTE # 2.8 TH/MM3 (1.0-4.8); MEAN CELL VOLUME 94.6 FL (80.0-100.0); MEAN CORPUSCULAR HEMOGLOBIN 32.7 PG (27.0-34.0); MEAN CORPUSCULAR HGB CONC 34.6 % (32.0-36.0); MEAN PLATELET VOLUME 8.4 FL (7.0-11.0); MONO % 12.4 % (0.0-8.0); MONOCYTE # 1.2 TH/MM3 (0-0.9); NEUT % 55.1 % (16.0-70.0); PLATELET COUNT 332 TH/MM3 (150-450); RED BLOOD COUNT 4.82 MIL/MM3 (4.50-5.90); RED CELL DISTRIBUTION WIDTH 12.6 % (11.6-17.2); WHITE BLOOD COUNT 9.8 TH/MM3 (4.0-11.0)
[2017-06-17 08:00] VITALS: BP 109/68; PULSE 66; RESP 19; TEMP 97.9; O2SAT 97
[2017-06-17 08:06] LABS: ALBUMIN 3.3 GM/DL (3.4-5.0); ALKALINE PHOSPHATASE 61 U/L (45-117); ALT (GPT) 16 U/L (12-78); AST (GOT) 16 U/L (15-37); BICARBONATE 28.7 MEQ/L (21.0-32.0); BLOOD UREA NITROGEN 7 MG/DL (7-18); CALCIUM 8.7 MG/DL (8.5-10.1); CHLORIDE 103 MEQ/L (98-107); CREATININE 0.81 MG/DL (0.60-1.30); GLOMERULAR FILTRATION RATE 101 ML/MIN (>89); GLUCOSE,RANDOM 114 MG/DL (74-106); SODIUM (NA) 137 MEQ/L (136-145); TOTAL BILIRUBIN ADULT 0.5 MG/DL (0.2-1.0); TOTAL PROTEIN 6.9 GM/DL (6.4-8.2)
[2017-06-17] MEDS: SODIUM CHLORIDE 0.9% FLUSH 10 ML FLUSH IV FLUSH SCH (08:59)
[2017-06-17] MEDS: REMOVE OLD PATCH T-DERMAL SCH (09:00)
[2017-06-17] MEDS: NICOTINE 21 MG/24 HR PATCH T-DERMAL SCH (09:00)
[2017-06-17 10:08] VITALS: O2SAT 96
--- NOTE | 2017-06-17 10:33 | HHI.GIFU ---
Subjective Remarks Pt not in room at 1000, will return later Objective Vitals I&O Vital Signs Date Time Temp Pulse Resp B/P (MAP) Pulse Ox O2 Delivery O2 Flow Rate FiO2 06/17/17 10:08 96 21 06/17/17 08:00 97.9 66 19 109/68 (82) 97 06/17/17 00:00 97.8 70 18 119/74 (89) 95 06/16/17 21:30 18 06/16/17 21:19 21 06/16/17 20:00 97.6 75 18 109/85 (93) 96 06/16/17 16:00 98.1 111 16 123/87 (99) 93 06/16/17 12:00 97.4 67 16 92/66 (75) 94 06/16/17 10:45 68 16 119/66 (83) 96 06/16/17 10:36 97.0 67 16 125/81 (96) 95 I/O 06/16/17 06/16/17 06/16/17 06/17/17 06/17/17 06/17/17 07:00 15:00 23:00 07:00 15:00 23:00 Intake Total 320 ml 200 ml 620 ml 320 ml Output Total 400 ml Balance 320 ml 200 ml 620 ml -80 ml Intake Oral 320 ml 620 ml 320 ml IV Total 0 ml Other 200 ml Output Urine Total 400 ml # Voids 2 2 2 # Bowel Movements 1 1 0 Laboratory Laboratory Tests Test 06/16/17 12:27 06/17/17 06:28 Carcinoembryonic Antigen 1.1 White Blood Count 9.8 Red Blood Count 4.82 Hemoglobin 15.8 Hematocrit 45.6 Mean Corpuscular Volume 94.6 Mean Corpuscular Hemoglobin 32.7 Mean Corpuscular Hemoglobin Concent 34.6 Red Cell Distribution Width 12.6 Platelet Count 332 Mean Platelet Volume 8.4 Neutrophils (%) (Auto) 55.1 Lymphocytes (%) (Auto) 28.7 Monocytes (%) (Auto) 12.4 Eosinophils (%) (Auto) 2.4 Basophils (%) (Auto) 1.4 Neutrophils # (Auto) 5.4 Lymphocytes # (Auto) 2.8 Monocytes # (Auto) 1.2 Eosinophils # (Auto) 0.2 Basophils # (Auto) 0.1 CBC Comment DIFF FINAL Differential Comment Blood Urea Nitrogen 7 Creatinine 0.81 Random Glucose 114 Total Protein 6.9 Albumin 3.3 Calcium Level 8.7 Alkaline Phosphatase 61 Aspartate Amino Transf (AST/SGOT) 16 Alanine Aminotransferase (ALT/SGPT) 16 Total Bilirubin 0.5 Sodium Level 137 Potassium Level 3.7 Chloride Level 103 Carbon Dioxide Level 28.7 Anion Gap 5 Estimat Glomerular Filtration Rate 101 Date/Time Source Procedure Growth Status 06/15/17 22:30 Stool Stool Cryptosporidium Exam - Final NEGATIVE - NO CRYPTOSPORIDIUM ANTIGEN... Complete 06/15/17 22:30 Stool Stool Stool Pus (RIGOBERTO) - Final NO WBC'S SEEN Complete 06/15/17 22:30 Stool Stool Giardia Antigen (RIGOBERTO) - Final NEGATIVE - NO GIARDIA ANTIGEN DETECTE... Complete Imaging Last Impressions Abdomen/Pelvis CT 06/15/17 0000 Signed Impressions: Service Date/Time: Thursday, June 15, 2017 09:06 - CONCLUSION: Abnormally ascending colon obstructive, most likely versus inflammatory.. There is some dilatation with bowel wall thickening. Trace ascites is evident. . Thomas Barriga MD FACR Assessment and Plan Plan ASSESSMENT - Abnormal imaging- CT abdomen and pelvis W IV contrast (06/15) --> Abnormally ascending colon obstructive, most likely versus inflammatory. There is some dilatation with bowel wall thickening. Trace ascites is evident. Pt denies ever having EGD or colonoscopy Symptoms of abdominal pressure and pain, mostly in umbilical region S/P colonoscopy yesterday (06/16) --> Obstructive mass ascending colon, could not pass scope, indurated. Internal and external hemorrhoids. S/P surgical evaluation, Dr. Medrano planning on lap or robot assisted right colectomy early next week. CEA 1.1 - Black stool intermittently, diarrhea- H/H WNL S/P EGD yesterday (06/16) --> Duodenitis duodenal bulb, gastritis, esophagitis , hiatal hernia. Stool culture positive for Yersinia Enterocolitica- Cryptosporidium and Giardia stool negative. No leukocytosis, afebrile Plan: EGD/colon biopsies pending planning on surgery early next week Protonix Clear liquids per Carri Soto [facility] Jun 17, 2017 10:33
--- NOTE | 2017-06-17 11:20 | HHI.PR ---
Subjective Subjective Notes No complaints. No BM last couple of days since colonscopy but he did have multiple BMS during prep. Objective Vitals/I&O Vital Signs Date Time Temp Pulse Resp B/P (MAP) Pulse Ox O2 Delivery O2 Flow Rate FiO2 06/17/17 10:08 96 21 06/17/17 08:00 97.9 66 19 109/68 (82) Labs Laboratory Tests Test 06/16/17 12:27 06/17/17 06:28 Carcinoembryonic Antigen 1.1 White Blood Count 9.8 Red Blood Count 4.82 Hemoglobin 15.8 Hematocrit 45.6 Mean Corpuscular Volume 94.6 Mean Corpuscular Hemoglobin 32.7 Mean Corpuscular Hemoglobin Concent 34.6 Red Cell Distribution Width 12.6 Platelet Count 332 Mean Platelet Volume 8.4 Neutrophils (%) (Auto) 55.1 Lymphocytes (%) (Auto) 28.7 Monocytes (%) (Auto) 12.4 Eosinophils (%) (Auto) 2.4 Basophils (%) (Auto) 1.4 Neutrophils # (Auto) 5.4 Lymphocytes # (Auto) 2.8 Monocytes # (Auto) 1.2 Eosinophils # (Auto) 0.2 Basophils # (Auto) 0.1 CBC Comment DIFF FINAL Differential Comment Blood Urea Nitrogen 7 Creatinine 0.81 Random Glucose 114 Total Protein 6.9 Albumin 3.3 Calcium Level 8.7 Alkaline Phosphatase 61 Aspartate Amino Transf (AST/SGOT) 16 Alanine Aminotransferase (ALT/SGPT) 16 Total Bilirubin 0.5 Sodium Level 137 Potassium Level 3.7 Chloride Level 103 Carbon Dioxide Level 28.7 Anion Gap 5 Estimat Glomerular Filtration Rate 101 Date/Time Source Procedure Growth Status 06/15/17 22:30 Stool Stool Cryptosporidium Exam - Final NEGATIVE - NO CRYPTOSPORIDIUM ANTIGEN... Complete 06/15/17 22:30 Stool Stool Stool Pus (RIGOBERTO) - Final NO WBC'S SEEN Complete 06/15/17 22:30 Stool Stool Giardia Antigen (RIGOBERTO) - Final NEGATIVE - NO GIARDIA ANTIGEN DETECTE... Complete Radiology Last Impressions Abdomen/Pelvis CT 06/15/17 0000 Signed Impressions: Service Date/Time: Thursday, June 15, 2017 09:06 - CONCLUSION: Abnormally ascending colon obstructive, most likely versus inflammatory.. There is some dilatation with bowel wall thickening. Trace ascites is evident. . Thomas Barriga MD FACR Narrative Exam NAD Abd: soft, nontender A/P Assessment and Plan 52 yo M with near obstructing colon mass near hepatic flexure. Pathology has returned as invasive adenoca. Plan ascending colectomy on Tuesday at 10am. D/w patient. MitchellTejinder MD Jun 17, 2017 11:19
[2017-06-17 12:00] VITALS: BP 134/60; PULSE 80; RESP 19; TEMP 98; O2SAT 97
--- NOTE | 2017-06-17 12:03 | HHI.PR ---
Subjective Remarks No acute complaints from the patient. He did have one episode of stomach pain overnight but when seen today describes no pain. Plan for laparoscopic colectomy on 06/21/2017. Objective Vital Signs Date Time Temp Pulse Resp B/P (MAP) Pulse Ox O2 Delivery O2 Flow Rate FiO2 06/17/17 10:08 96 21 06/17/17 08:00 97.9 66 19 109/68 (82) 97 06/17/17 00:00 97.8 70 18 119/74 (89) 95 06/16/17 21:30 18 06/16/17 21:19 21 06/16/17 20:00 97.6 75 18 109/85 (93) 96 06/16/17 16:00 98.1 111 16 123/87 (99) 93 06/16/17 12:00 97.4 67 16 92/66 (75) 94 I/O 06/16/17 06/16/17 06/16/17 06/17/17 06/17/17 06/17/17 07:00 15:00 23:00 07:00 15:00 23:00 Intake Total 320 ml 200 ml 620 ml 320 ml Output Total 400 ml Balance 320 ml 200 ml 620 ml -80 ml Intake Oral 320 ml 620 ml 320 ml IV Total 0 ml Other 200 ml Output Urine Total 400 ml # Voids 2 2 2 # Bowel Movements 1 1 0 Result Diagram: 06/17/17 0606/17/17 0628 Objective Remarks GENERAL: NAD, A&Ox3 HEAD: Normocephalic. NECK: Supple, trachea midline. No lymphadenopathy. EYES: No scleral icterus. No injection or drainage. CARDIOVASCULAR: Regular rate and rhythm without murmurs, gallops, or rubs. RESPIRATORY: Breath sounds equal bilaterally. No accessory muscle use. GASTROINTESTINAL: Abdomen soft, non-tender, nondistended. MUSCULOSKELETAL: No cyanosis, or edema. SKIN: Warm and dry. NEURO: No focal neurological deficitis. A/P Problem List: (1) Abdominal pain ICD Code: R10.9 - Unspecified abdominal pain (2) Large bowel obstruction ICD Code: K56.609 - Unspecified intestinal obstruction, unspecified as to partial versus complete obstruction Status: Acute Assessment and Plan 52-year-old male admitted secondary to bowel obstruction, discovered to be related to an obstructing colon mass. Plan for laparoscopic colectomy on 06/21/2017. Continue pain treatments as needed. Right sided abdominal pain Obstructing colon mass General surgery consulted Continue pain treatments as needed Follow labs including CEA Leukocytosis Continue Flagyl Follow CBC Hypertension Continue baseline treatment Follow blood pressures Adjust treatments as needed DVT prophylaxis Eric Baez MD Jun 17, 2017 12:01
[2017-06-17] MEDS: ENOXAPARIN SODIUM 40 MG/0.4 ML SYRINGE SQ SCH (12:50)
[2017-06-17] MEDS: MORPHINE SULFATE 2 MG/ML SYRINGE IV PUSH PRN (12:52)
--- NOTE | 2017-06-17 14:45 | HHI.GIFU ---
Subjective Remarks Resting in the bed has been up ambulating in the medrano in the room Denies any nausea vomiting Afebrile Current hemoglobin 15.8 (Melinda Gutierrez) Objective Vitals I&O Vital Signs Date Time Temp Pulse Resp B/P (MAP) Pulse Ox O2 Delivery O2 Flow Rate FiO2 06/17/17 12:00 98.0 80 19 134/60 (84) 97 06/17/17 10:08 96 21 06/17/17 08:00 97.9 66 19 109/68 (82) 97 06/17/17 00:00 97.8 70 18 119/74 (89) 95 06/16/17 21:30 18 06/16/17 21:19 21 06/16/17 20:00 97.6 75 18 109/85 (93) 96 06/16/17 16:00 98.1 111 16 123/87 (99) 93 I/O 06/16/17 06/16/17 06/16/17 06/17/17 06/17/17 06/17/17 06:59 14:59 22:59 06:59 14:59 22:59 Intake Total 320 ml 200 ml 620 ml 320 ml Output Total 400 ml Balance 320 ml 200 ml 620 ml -80 ml Intake Oral 320 ml 620 ml 320 ml IV Total 0 ml Other 200 ml Output Urine Total 400 ml # Voids 2 2 2 # Bowel Movements 1 1 0 Laboratory Laboratory Tests Test 06/17/17 06:28 White Blood Count 9.8 Red Blood Count 4.82 Hemoglobin 15.8 Hematocrit 45.6 Mean Corpuscular Volume 94.6 Mean Corpuscular Hemoglobin 32.7 Mean Corpuscular Hemoglobin Concent 34.6 Red Cell Distribution Width 12.6 Platelet Count 332 Mean Platelet Volume 8.4 Neutrophils (%) (Auto) 55.1 Lymphocytes (%) (Auto) 28.7 Monocytes (%) (Auto) 12.4 Eosinophils (%) (Auto) 2.4 Basophils (%) (Auto) 1.4 Neutrophils # (Auto) 5.4 Lymphocytes # (Auto) 2.8 Monocytes # (Auto) 1.2 Eosinophils # (Auto) 0.2 Basophils # (Auto) 0.1 CBC Comment DIFF FINAL Differential Comment Blood Urea Nitrogen 7 Creatinine 0.81 Random Glucose 114 Total Protein 6.9 Albumin 3.3 Calcium Level 8.7 Alkaline Phosphatase 61 Aspartate Amino Transf (AST/SGOT) 16 Alanine Aminotransferase (ALT/SGPT) 16 Total Bilirubin 0.5 Sodium Level 137 Potassium Level 3.7 Chloride Level 103 Carbon Dioxide Level 28.7 Anion Gap 5 Estimat Glomerular Filtration Rate 101 Date/Time Source Procedure Growth Status 06/15/17 22:30 Stool Stool Cryptosporidium Exam - Final NEGATIVE - NO CRYPTOSPORIDIUM ANTIGEN... Complete 06/15/17 22:30 Stool Stool Stool Pus (RIGOBERTO) - Final NO WBC'S SEEN Complete 06/15/17 22:30 Stool Stool Giardia Antigen (RIGOBERTO) - Final NEGATIVE - NO GIARDIA ANTIGEN DETECTE... Complete Imaging Last Impressions Abdomen/Pelvis CT 06/15/17 0000 Signed Impressions: Service Date/Time: Thursday, June 15, 2017 09:06 - CONCLUSION: Abnormally ascending colon obstructive, most likely versus inflammatory.. There is some dilatation with bowel wall thickening. Trace ascites is evident. . Thomas Barriga MD FACR Physical Exam General, slim male looks to be his stated age resting in the bed HEENT, atraumatic normocephalic Neck is supple thin Cardiovascular rhythm is regular, S1-S2 Pulmonary lungs are essentially clear without audible rhonchi GI abdomen is taut, bowel sounds are active, mild minimal distention Neurologically he is alert oriented 3 speech is clear Psychiatric quiet but mood and affect are appropriate (Melinda Gutierrez) Assessment and Plan Plan ASSESSMENT - Abnormal imaging- CT abdomen and pelvis W IV contrast (06/15) --> Abnormally ascending colon obstructive, most likely versus inflammatory. There is some dilatation with bowel wall thickening. Trace ascites is evident. Pt denies ever having EGD or colonoscopy Symptoms of abdominal pressure and pain, mostly in umbilical region S/P colonoscopy yesterday (06/16) --> Obstructive mass ascending colon, could not pass scope, indurated. Internal and external hemorrhoids. S/P surgical evaluation, Dr. Medrano planning on lap or robot assisted right colectomy early next week. CEA 1.1 - Black stool intermittently, diarrhea- H/H WNL S/P EGD yesterday (06/16) --> Duodenitis duodenal bulb, gastritis, esophagitis , hiatal hernia. Stool culture positive for Yersinia Enterocolitica- Cryptosporidium and Giardia stool negative. No leukocytosis, afebrile 06/16/2017 colonoscopy done results . A sending colon obstructive mass could not pass scope with induration. Multiple biopsies done internal hemorrhoids noted Plan Biopsies pending General surgery consult has been done. Patient is set up for surgery Tuesday, . Protonix Diet full liquids with some Ensure Monitor lab Supportive care We will consider colonoscopy in 3 months pending surgical consult Patient was seen per myself and Dr. Jara, note was done on her behalf (Melinda Gutierrez) Physician Comments seen, examined agree with above full liquid diet pathology suggestive of colon cancer -adenocarcinoma-patient informed gi will sign off (Bianka Jara MD) Melinda Gutierrez Jun 17, 2017 14:45 Bianka Jara MD Jun 17, 2017 15:00
[2017-06-17 16:00] VITALS: BP 135/86; PULSE 74; RESP 18; TEMP 98.4; O2SAT 99
[2017-06-17] MEDS: LISINOPRIL 20 MG TAB PO SCH (17:39)
[2017-06-17 20:00] VITALS: BP 130/88; PULSE 77; RESP 19; TEMP 97.7; O2SAT 96
[2017-06-18] VITALS: BP 129/82; PULSE 74; RESP 19; TEMP 98.1; O2SAT 94
[2017-06-18] MEDS: amLODIPine BESYLATE 5 MG TAB PO SCH (06:30)
[2017-06-18 08:00] VITALS: BP 108/76; PULSE 75; RESP 18; TEMP 97.7; O2SAT 97
[2017-06-18] MEDS: NICOTINE 21 MG/24 HR PATCH T-DERMAL SCH (08:25)
[2017-06-18] MEDS: REMOVE OLD PATCH T-DERMAL SCH (08:25)
[2017-06-18] MEDS: SODIUM CHLORIDE 0.9% FLUSH 10 ML FLUSH IV FLUSH SCH ×2 (08:25→20:18)
[2017-06-18] MEDS: ENOXAPARIN SODIUM 40 MG/0.4 ML SYRINGE SQ SCH (11:50)
[2017-06-18 12:00] VITALS: BP 129/82; PULSE 75; RESP 18; TEMP 97.7; O2SAT 98
[2017-06-18 16:00] VITALS: BP 124/81; PULSE 78; RESP 18; TEMP 98.5; O2SAT 98
--- NOTE | 2017-06-18 16:38 | HHI.PR ---
Subjective Remarks No further abdominal pain reported. No new complaints from the patient. Plan for surgery on 06/21/2017. Objective Vital Signs Date Time Temp Pulse Resp B/P (MAP) Pulse Ox O2 Delivery O2 Flow Rate FiO2 06/18/17 12:00 97.7 75 18 129/82 (98) 98 06/18/17 08:00 97.7 75 18 108/76 (87) 97 06/18/17 00:00 98.1 74 19 129/82 (98) 94 06/17/17 20:00 97.7 77 19 130/88 (102) 96 I/O 06/17/17 06/17/17 06/17/17 06/18/17 06/18/17 06/18/17 07:00 15:00 23:00 07:00 15:00 23:00 Intake Total 320 ml 960 ml 240 ml Output Total 400 ml Balance -80 ml 960 ml 240 ml Intake Oral 320 ml 960 ml 240 ml Output Urine Total 400 ml # Voids 2 4 3 # Bowel Movements 0 0 Result Diagram: 06/17/1728 06/17/17627 Objective Remarks GENERAL: NAD, A&Ox3 HEAD: Normocephalic. NECK: Supple, trachea midline. No lymphadenopathy. EYES: No scleral icterus. No injection or drainage. CARDIOVASCULAR: Regular rate and rhythm without murmurs, gallops, or rubs. RESPIRATORY: Breath sounds equal bilaterally. No accessory muscle use. GASTROINTESTINAL: Abdomen soft, non-tender, nondistended. MUSCULOSKELETAL: No cyanosis, or edema. SKIN: Warm and dry. NEURO: No focal neurological deficitis. A/P Problem List: (1) Abdominal pain ICD Code: R10.9 - Unspecified abdominal pain (2) Large bowel obstruction ICD Code: K56.609 - Unspecified intestinal obstruction, unspecified as to partial versus complete obstruction Status: Acute Assessment and Plan 52-year-old male admitted secondary to bowel obstruction, discovered to be related to an obstructing colon mass. Plan for laparoscopic colectomy on 06/21/2017. Continue pain treatments as needed. No new complaints from the patient. Right sided abdominal pain Obstructing colon mass General surgery consulted Continue pain treatments as needed Follow labs including CEA Leukocytosis Continue Flagyl Follow CBC Hypertension Continue baseline treatment Follow blood pressures Adjust treatments as needed DVT prophylaxis Eric Baez MD Jun 18, 2017 16:38
[2017-06-18] MEDS: LISINOPRIL 20 MG TAB PO SCH (16:58)
[2017-06-18 17:29] VITALS: O2SAT 98
[2017-06-18 20:15] VITALS: BP 146/78; PULSE 71; RESP 20; TEMP 98.1; O2SAT 98
[2017-06-18] MEDS: MORPHINE SULFATE 2 MG/ML SYRINGE IV PUSH PRN (23:25)
[2017-06-19] VITALS (7 sets, daily range): BP systolic 117–157; BP diastolic 78–92; PULSE 66–78; RESP 17–20; TEMP 97–97.8; O2SAT 97–100
[2017-06-19] MEDS: amLODIPine BESYLATE 5 MG TAB PO SCH (05:39)
[2017-06-19] MEDS: REMOVE OLD PATCH T-DERMAL SCH (08:02)
[2017-06-19] MEDS: NICOTINE 21 MG/24 HR PATCH T-DERMAL SCH (08:02)
[2017-06-19] MEDS: SODIUM CHLORIDE 0.9% FLUSH 10 ML FLUSH IV FLUSH SCH ×2 (08:03→20:17)
--- NOTE | 2017-06-19 12:07 | HHI.PR ---
Subjective Remarks Pathology shows moderately differentiated adenocarcinoma. This has been discussed with the patient. No new complaints from the patient. Plan for surgery on 06/21/2017. Objective Vital Signs Date Time Temp Pulse Resp B/P (MAP) Pulse Ox O2 Delivery O2 Flow Rate FiO2 06/19/17 09:58 99 06/19/17 08:00 97.6 74 19 134/89 (104) 99 06/19/17 05:37 78 20 117/84 (95) 98 06/19/17 00:00 97.8 68 20 134/78 (96) 97 06/18/17 20:15 98.1 71 20 146/78 (100) 98 06/18/17 17:29 98 21 06/18/17 16:00 98.5 78 18 124/81 (95) 98 I/O 06/18/17 06/18/17 06/18/17 06/19/17 06/19/17 06/19/17 07:00 15:00 23:00 07:00 15:00 23:00 Intake Total 240 ml 1200 ml 900 ml Balance 240 ml 1200 ml 900 ml Intake Oral 240 ml 1200 ml 900 ml # Voids 3 4 3 # Bowel Movements 0 1 Result Diagram: 06/17/1762706/17/17627 Objective Remarks GENERAL: NAD, A&Ox3 HEAD: Normocephalic. NECK: Supple, trachea midline. No lymphadenopathy. EYES: No scleral icterus. No injection or drainage. CARDIOVASCULAR: Regular rate and rhythm without murmurs, gallops, or rubs. RESPIRATORY: Breath sounds equal bilaterally. No accessory muscle use. GASTROINTESTINAL: Abdomen soft, non-tender, nondistended. MUSCULOSKELETAL: No cyanosis, or edema. SKIN: Warm and dry. NEURO: No focal neurological deficitis. A/P Problem List: (1) Abdominal pain ICD Code: R10.9 - Unspecified abdominal pain (2) Large bowel obstruction ICD Code: K56.609 - Unspecified intestinal obstruction, unspecified as to partial versus complete obstruction Status: Acute Assessment and Plan 52-year-old male admitted secondary to bowel obstruction, discovered to be related to an obstructing colon mass. Plan for laparoscopic colectomy on 06/21/2017. Continue pain treatments as needed. Pathology has resulted. Pathology results discussed with patient. Right sided abdominal pain Obstructing colon mass Moderately differentiated adenocarcinoma General surgery consulted Continue pain treatments as needed Follow labs including CEA Leukocytosis Continue Flagyl Follow CBC Hypertension Continue baseline treatment Follow blood pressures Adjust treatments as needed DVT prophylaxis Eric Baez MD Jun 19, 2017 12:07
[2017-06-19] MEDS: ENOXAPARIN SODIUM 40 MG/0.4 ML SYRINGE SQ SCH (12:15)
[2017-06-19] MEDS: LISINOPRIL 20 MG TAB PO SCH (16:56)
[2017-06-19] MEDS ORDERED: TEMAZEPAM 15 MG CAP PO ONE (20:30)
[2017-06-20] VITALS (8 sets, daily range): BP systolic 132–143; BP diastolic 73–91; PULSE 67–80; RESP 16–21; TEMP 97.4–98.2; O2SAT 97–99
[2017-06-20] MEDS: amLODIPine BESYLATE 5 MG TAB PO SCH (05:59)
[2017-06-20] MEDS: REMOVE OLD PATCH T-DERMAL SCH (09:48)
[2017-06-20] MEDS: SODIUM CHLORIDE 0.9% FLUSH 10 ML FLUSH IV FLUSH SCH ×2 (09:48→21:00)
[2017-06-20] MEDS: NICOTINE 21 MG/24 HR PATCH T-DERMAL SCH (09:49)
[2017-06-20] MEDS: ENOXAPARIN SODIUM 40 MG/0.4 ML SYRINGE SQ SCH (12:14)
--- NOTE | 2017-06-20 12:32 | HHI.PR ---
Subjective Subjective Notes No complaints. Objective Vitals/I&O Vital Signs Date Time Temp Pulse Resp B/P (MAP) Pulse Ox O2 Delivery O2 Flow Rate FiO2 06/20/17 09:23 98 06/20/17 08:00 98.2 76 21 134/74 (94) 06/18/17 17:29 21 Labs Date/Time Source Procedure Growth Status 06/15/17 22:30 Stool Stool Cryptosporidium Exam - Final NEGATIVE - NO CRYPTOSPORIDIUM ANTIGEN... Complete 06/15/17 22:30 Stool Stool Stool Pus (RIGOBERTO) - Final NO WBC'S SEEN Complete 06/15/17 22:30 Stool Stool Giardia Antigen (RIGOBERTO) - Final NEGATIVE - NO GIARDIA ANTIGEN DETECTE... Complete Radiology Last Impressions Abdomen/Pelvis CT 06/15/17 0000 Signed Impressions: Service Date/Time: Thursday, June 15, 2017 09:06 - CONCLUSION: Abnormally ascending colon obstructive, most likely versus inflammatory.. There is some dilatation with bowel wall thickening. Trace ascites is evident. . Thomas Barriga MD FACR Narrative Exam NAD Abd: soft, nontender A/P Assessment and Plan 52 yo M with near obstructing colon mass near hepatic flexure. Pathology has returned as invasive adenoca. Proceed to OR tomorrow for lap assisted possible open ascending colectomy. Discussed again in detail with the patient including expected post op course. Tejinder Medrano MD Jun 20, 2017 12:32
--- NOTE | 2017-06-20 15:39 | HHI.PR ---
Subjective Remarks Follow-up abdominal mass with obstruction June 20, 2017-patient seen and examined, denies any abdominal pain. Plan for surgery tomorrow Objective Vitals Vital Signs Date Time Temp Pulse Resp B/P (MAP) Pulse Ox O2 Delivery O2 Flow Rate FiO2 06/20/17 12:00 97.9 67 17 133/81 (98) 98 06/20/17 09:23 98 06/20/17 08:00 98.2 76 21 134/74 (94) 98 06/20/17 05:58 71 20 139/73 (95) 98 06/20/17 00:34 97.4 74 18 143/88 (106) 97 06/19/17 20:15 97.0 66 20 132/78 (96) 99 06/19/17 16:00 97.4 71 17 157/92 (113) 100 I/O 06/19/17 06/19/17 06/19/17 06/20/17 06/20/17 06/20/17 07:00 15:00 23:00 07:00 15:00 23:00 Intake Total 900 ml 1200 ml Balance 900 ml 1200 ml Intake Oral 900 ml 1200 ml # Voids 3 4 # Bowel Movements 1 Result Diagram: 06/17/17 0628 06/17/17 0628 Imaging Last Impressions Abdomen/Pelvis CT 06/15/17 0000 Signed Impressions: Service Date/Time: Thursday, June 15, 2017 09:06 - CONCLUSION: Abnormally ascending colon obstructive, most likely versus inflammatory.. There is some dilatation with bowel wall thickening. Trace ascites is evident. . Thomas Barriga MD FACR Objective Remarks GENERAL: NAD SKIN: Warm and dry. HEAD: Normocephalic. EYES: No scleral icterus. No injection or drainage. NECK: Supple, trachea midline. No JVD or lymphadenopathy. CARDIOVASCULAR: Regular rate and rhythm without murmurs, gallops, or rubs. RESPIRATORY: Breath sounds equal bilaterally. No accessory muscle use. GASTROINTESTINAL: Abdomen soft, non-tender, nondistended. MUSCULOSKELETAL: No cyanosis, or edema. BACK: Nontender without obvious deformity. No CVA tenderness. A/P Problem List: (1) Abdominal pain ICD Code: R10.9 - Unspecified abdominal pain (2) Adenocarcinoma of colon ICD Code: C18.9 - Malignant neoplasm of colon, unspecified Assessment and Plan 52-year-old man with Right sided abdominal pain Obstructing colon mass Moderately differentiated adenocarcinoma General surgery consulted and plan for lap assisted possible open ascending colectomy June 21, 2017 Continue pain treatments as needed Leukocytosis Continue Flagyl Hypertension Continue baseline treatment DVT prophylaxis Angus Levy MD Jun 20, 2017 15:39
[2017-06-20] MEDS: LISINOPRIL 20 MG TAB PO SCH (16:29)
[2017-06-20] MEDS ORDERED: LACTATED RINGER'S 1000 ML IV PRN (22:45)
[2017-06-21] VITALS: BP 135/82; PULSE 65; RESP 18; TEMP 97.9; O2SAT 95
[2017-06-21 04:00] VITALS: BP 127/62; PULSE 62; RESP 18; TEMP 98.6; O2SAT 99
[2017-06-21] MEDS: amLODIPine BESYLATE 5 MG TAB PO SCH (05:53)
[2017-06-21] MEDS ORDERED: fentaNYL CITRATE 250 MCG/5 ML AMP ONE (06:54)
[2017-06-21] MEDS ORDERED: ROPIVACAINE 0.5% PF INJ 30 ML VIAL ONE ×2 (07:10→07:11)
[2017-06-21] MEDS ORDERED: DEXAMETHASONE SOD PHOS 4 MG/ML VIAL ONE (07:12)
[2017-06-21] MEDS ORDERED: BUPIVACAINE/EPINEPHRINE 0.25% 50 ML VIAL ONE (07:18)
[2017-06-21] MEDS ORDERED: SODIUM CHLORIDE 0.9% 20 ML VIAL ONE (07:20)
[2017-06-21] MEDS ORDERED: EPINEPHrine HCL PF/SF (1:1000) 1 MG/ML AMP I-OCULAR ONE (07:21)
[2017-06-21] MEDS ORDERED: metroNIDAZOLE 500 MG INJ 100 ML IV ONE (07:39)
[2017-06-21] MEDS ORDERED: ceFAZolin INJ 1,000 MG VIAL IV ONE ×2 (07:50→12:00)
[2017-06-21] MEDS ORDERED: DO NOT ADM ANY ANTICOAGULANT DRUGS PRN (10:50)
[2017-06-21] MEDS: ACETAMINOPHEN 1000 MG/100 ML 100 ML IV SCH ×3 (10:57→23:45)
[2017-06-21] MEDS ORDERED: SODIUM CHLORIDE 0.9% FLUSH 10 ML FLUSH IV FLUSH PRN (11:00)
[2017-06-21] MEDS ORDERED: MORPHINE SULFATE 2 MG/ML SYRINGE IV PUSH PRN (11:00)
[2017-06-21] MEDS ORDERED: ZOLPIDEM TARTRATE 5 MG TAB PO PRN (11:00)
[2017-06-21] MEDS ORDERED: diphenhydrAMINE HCL 50 MG/ML VIAL IV PUSH PRN (11:00)
[2017-06-21] MEDS ORDERED: ACETAMINOPHEN/HYDROcodone 325 MG/5 MG TAB PO PRN (11:00)
[2017-06-21] MEDS ORDERED: Post-op Orders (for Pharmacy) XX ONE (11:00)
[2017-06-21] MEDS ORDERED: NALOXONE HCL 0.4 MG/ML AMP IV PUSH PRN (11:00)
--- NOTE | 2017-06-21 11:00 | PD.OP ---
cc: Bianka Jara MD; Mitchell,Tejinder EUCEDA Operative Report Date of Surgery: Jun 21, 2017 Preoperative Diagnosis: (1) Adenocarcinoma of colon Postoperative Diagnosis: (1) Adenocarcinoma of colon Procedure: Laparoscopic assisted right colectomy Anesthesia: GETA Surgeon: Tejinder Medrano Sql Report Developer(s): Sandra [id number] Westley [employer] Operation and Findings: EBL: 50cc Operative findings: Hepatic flexure mass (known colon adenocarcinoma). Procedure in detail: The patient was taken to the operating room placed in the supine position. General endotracheal anesthesia was induced. Enriquez catheter was placed in the left arm tucked. The abdomen was prepped and draped in usual sterile fashion. Surgical timeout was performed to verify correct patient procedure and site. He received Ancef 2 g and Flagyl 500 mg. The patient received a tap block by anesthesia. The left midabdomen a 5 mm incision was made using the Optiview trocar laparoscope was directly inserted. The abdomen was insufflated to 15 mmHg with CO2 gas which the patient tolerated well. A 5 mm port was placed in the left lower abdomen and one in the left upper abdomen in the epigastrium. Patient was placed in slight Trendelenburg position and turned to the left. Attention was turned to the right colon. On evaluation of the right colon there was noted to be a firm mass at the hepatic flexure without any apparent invasion into surrounding structures. At this point using the harmonic scalpel the terminal ileum was carefully mobilized in the white line of Toldt of the right colon. Blunt dissection was also used for mobilization. Next, the gastrocolic omentum was in the avascular plane from the transverse colon. The hepatic flexure was then carefully taken down with harmonic scalpel. Careful attention was made to avoid the duodenum which was somewhat pulled up towards the mass in the colon. The first second and third portions of the duodenum were identified in the mesentery of the colon carefully from the duodenum. There is no invasion of the mass into the gallbladder the liver or the duodenum. At this point there is adequate mobilization. Laparoscopic instruments and trochars were removed. A transverse incision in the upper right abdomen was made sharply carried out through the subcutaneous tissues and rectus muscle with electrocautery. The Adrián wound retractor was placed. The specimen was brought up out of the incision. The middle colic vessels were transilluminated in the right middle colic vessel was identified. The transverse colon distally this point was transected with the PAMELA 75 blue load. The terminal ileum about 10 cm from the ileocecal valve was also transected with a PAMELA 75 blue load. The mesentery was taken down with the harmonic scalpel. The right branch of the middle colic vessel was clamped and tied with 0 Vicryl ties. The ileocolic vessels were also ligated with 0 Vicryl ties 2. The specimen was then removed from the abdominal cavity and sent to pathology. A [id number] functional end-to-end anastomosis was then performed between the terminal ileum and the transverse colon using the 75 mm blue load. There is no bleeding or tension at the staple line. The common enterotomy was closed with TX 60 blue load. The lumen was widely patent. Mesentery closed with 3-0 silk sutures. This point the bowel was allowed to reenter the abdomen. The fascia was closed in 2 layers with #1 PDS suture. The wound irrigated and skin closed with wide skin staplers including the port sites. A small shivani dressing was applied to the increased risk of infection after colectomy. Patient tolerated the procedure well and was extubated and taken to PACU in stable condition. Tejinder Medrano MD Jun 21, 2017 10:59
[2017-06-21] MEDS: LACTATED RINGER'S 1000 ML INJ 1,000 ML IV SCH ×2 (11:14→19:20)
[2017-06-21 12:00] VITALS: BP 120/74; PULSE 71; RESP 19; TEMP 97.5; O2SAT 92
[2017-06-21] MEDS ORDERED: GLYCOPYRROLATE 1 MG/5 ML SYRINGE IV PUSH ONE (12:00)
[2017-06-21] MEDS ORDERED: ePHEDrine/NS 25 MG/5 ML SYRINGE IV ONE (12:00)
[2017-06-21] MEDS ORDERED: ONDANSETRON HCL 4 MG/2 ML VIAL IV ONE (12:00)
[2017-06-21] MEDS ORDERED: LIDOCAINE HCL 1% PF 5 ML SYRINGE OTHER ONE (12:00)
[2017-06-21] MEDS ORDERED: LACTATED RINGER'S 1000 ML INJ 1,000 ML IV ONE (12:00)
[2017-06-21] MEDS ORDERED: ROCURONIUM INJ 50 MG/5 ML SYRINGE IV PUSH ONE (12:00)
[2017-06-21] MEDS ORDERED: NEOSTIGMINE 5 MG/5 ML SYRINGE IV PUSH ONE (12:00)
[2017-06-21] MEDS ORDERED: PROPOFOL 200 MG/20 ML AMP IV ONE (12:00)
[2017-06-21] MEDS ORDERED: KETOROLAC TROMETHAMINE 30 MG/ML (IVP) VIAL IV PUSH ONE (12:00)
[2017-06-21] MEDS ORDERED: DEXAMETHASONE SOD PHOS 4 MG/ML VIAL IV ONE (12:00)
[2017-06-21] MEDS: NICOTINE 21 MG/24 HR PATCH T-DERMAL SCH (12:04)
[2017-06-21] MEDS: REMOVE OLD PATCH T-DERMAL SCH (12:05)
[2017-06-21] MEDS: KETOROLAC TROMETHAMINE 30 MG/ML (IVP) VIAL IV PUSH SCH ×3 (12:07→23:46)
--- NOTE | 2017-06-21 12:23 | HHI.PR ---
Subjective Remarks Follow-up abdominal mass with obstruction June 20, 2017-patient seen and examined, denies any abdominal pain. Plan for surgery tomorrow June 21, 2017-patient seen and examined, he is status post colectomy. Stable. And denies any significant abdominal pain Objective Vitals Vital Signs Date Time Temp Pulse Resp B/P (MAP) Pulse Ox O2 Delivery O2 Flow Rate FiO2 06/21/17 11:39 98.0 66 13 118/68 (85) 97 Room Air 06/21/17 11:30 64 13 119/68 (85) 96 Nasal Cannula 2 06/21/17 11:15 77 13 135/75 (95) 98 Nasal Cannula 2 06/21/17 11:00 72 14 150/90 (110) 100 Nasal Cannula 2 06/21/17 10:48 98.3 79 14 143/89 (107) 100 Nasal Cannula 2 06/21/17 04:00 98.6 62 18 127/62 (83) 99 06/21/17 00:00 97.9 65 18 135/82 (99) 95 06/20/17 20:00 97.5 67 18 132/83 (99) 99 06/20/17 17:57 97 21 06/20/17 16:00 97.9 80 16 142/91 (108) 97 I/O 06/20/17 06/20/17 06/20/17 06/21/17 06/21/17 06/21/17 07:00 15:00 23:00 07:00 15:00 23:00 Intake Total 500 ml 0 ml 1572 ml Output Total 7 ml 200 ml Balance 493 ml 0 ml 1372 ml Intake Oral 500 ml 0 ml 30 ml IV Total 142 ml Other 1400 ml Output Urine Total 7 ml 150 ml Estimated Blood Loss 50 ml # Voids 3 1 # Bowel Movements 0 Result Diagram: 06/17/1728 06/17/17627 Objective Remarks GENERAL: NAD SKIN: Warm and dry. HEAD: Normocephalic. EYES: No scleral icterus. No injection or drainage. NECK: Supple, trachea midline. No JVD or lymphadenopathy. CARDIOVASCULAR: Regular rate and rhythm without murmurs, gallops, or rubs. RESPIRATORY: Breath sounds equal bilaterally. No accessory muscle use. GASTROINTESTINAL: Abdomen soft, mildly tender, nondistended. dressing over incision MUSCULOSKELETAL: No cyanosis, or edema. BACK: Nontender without obvious deformity. No CVA tenderness. Procedures s/p Laparoscopic assisted right colectomy 06/21/17 A/P Problem List: (1) Abdominal pain ICD Code: R10.9 - Unspecified abdominal pain (2) Adenocarcinoma of colon ICD Code: C18.9 - Malignant neoplasm of colon, unspecified Assessment and Plan 52-year-old man with Right sided abdominal pain Obstructing colon mass Moderately differentiated adenocarcinoma General surgery consulted and patient is s/p Laparoscopic assisted right colectomy 06/21/17 Continue pain treatments as needed Leukocytosis Continue Flagyl Hypertension Continue baseline treatment DVT prophylaxis Angus Levy MD Jun 21, 2017 12:23
[2017-06-21 16:00] VITALS: BP 140/76; PULSE 94; RESP 17; TEMP 97.1; O2SAT 97
[2017-06-21 16:12] VITALS: O2SAT 98
[2017-06-21] MEDS: LISINOPRIL 20 MG TAB PO SCH (17:28)
[2017-06-21] MEDS: SODIUM CHLORIDE 0.9% FLUSH 10 ML FLUSH IV FLUSH SCH (19:19)
[2017-06-21 20:00] VITALS: BP 169/118; PULSE 101; RESP 18; TEMP 97.8; O2SAT 97
[2017-06-21] MEDS: ACETAMINOPHEN/HYDROcodone 325 MG/10 MG TAB PO PRN (22:44)
[2017-06-22] VITALS: BP 145/85; PULSE 100; RESP 18; TEMP 98.1; O2SAT 95
[2017-06-22 04:00] VITALS: BP 140/86; PULSE 98; RESP 18; TEMP 98.6; O2SAT 97
[2017-06-22] MEDS: amLODIPine BESYLATE 5 MG TAB PO SCH (05:50)
[2017-06-22] MEDS: KETOROLAC TROMETHAMINE 30 MG/ML (IVP) VIAL IV PUSH SCH ×3 (05:50→17:18)
[2017-06-22] MEDS: ACETAMINOPHEN 1000 MG/100 ML 100 ML IV SCH (05:51)
[2017-06-22] MEDS: LACTATED RINGER'S 1000 ML INJ 1,000 ML IV SCH (05:51)
[2017-06-22 08:00] VITALS: BP 121/75; PULSE 69; RESP 17; TEMP 98; O2SAT 99
[2017-06-22] MEDS: NICOTINE 21 MG/24 HR PATCH T-DERMAL SCH (08:44)
[2017-06-22] MEDS: SODIUM CHLORIDE 0.9% FLUSH 10 ML FLUSH IV FLUSH SCH ×2 (08:44→21:36)
[2017-06-22] MEDS: REMOVE OLD PATCH T-DERMAL SCH (08:45)
[2017-06-22] MEDS: ACETAMINOPHEN/HYDROcodone 325 MG/10 MG TAB PO PRN ×2 (10:31→17:18)
--- NOTE | 2017-06-22 10:47 | HHI.PR ---
Subjective Remarks Follow-up abdominal mass with obstruction June 20, 2017-patient seen and examined, denies any abdominal pain. Plan for surgery tomorrow June 21, 2017-patient seen and examined, he is status post colectomy. Stable. And denies any significant abdominal pain June 22, 2017-patient seen and examined, tolerating clear liquids without any competition of abdominal pain, nausea or vomiting. Objective Vitals Vital Signs Date Time Temp Pulse Resp B/P (MAP) Pulse Ox O2 Delivery O2 Flow Rate FiO2 06/22/17 04:00 98.6 98 18 140/86 (104) 97 06/22/17 00:46 17 06/22/17 00:00 98.1 100 18 145/85 (105) 95 06/21/17 23:44 18 06/21/17 20:00 97.8 101 18 169/118 (135) 97 06/21/17 16:12 98 21 06/21/17 16:00 97.1 94 17 140/76 (97) 97 06/21/17 12:00 97.5 71 19 120/74 (89) 92 06/21/17 11:39 98.0 66 13 118/68 (85) 97 Room Air 06/21/17 11:30 64 13 119/68 (85) 96 Nasal Cannula 2 06/21/17 11:15 77 13 135/75 (95) 98 Nasal Cannula 2 06/21/17 11:00 72 14 150/90 (110) 100 Nasal Cannula 2 06/21/17 10:48 98.3 79 14 143/89 (107) 100 Nasal Cannula 2 I/O 06/21/17 06/21/17 06/21/17 06/22/17 06/22/17 06/22/17 06:59 14:59 22:59 06:59 14:59 22:59 Intake Total 0 ml 1572 ml 700 ml 1440 ml Output Total 200 ml Balance 0 ml 1372 ml 700 ml 1440 ml Intake Oral 0 ml 30 ml 600 ml 240 ml IV Total 142 ml 100 ml 1200 ml Other 1400 ml Output Urine Total 150 ml Estimated Blood Loss 50 ml # Voids 3 1 3 2 # Bowel Movements 0 0 Objective Remarks GENERAL: NAD SKIN: Warm and dry. HEAD: Normocephalic. EYES: No scleral icterus. No injection or drainage. NECK: Supple, trachea midline. No JVD or lymphadenopathy. CARDIOVASCULAR: Regular rate and rhythm without murmurs, gallops, or rubs. RESPIRATORY: Breath sounds equal bilaterally. No accessory muscle use. GASTROINTESTINAL: Abdomen soft, mildly tender, nondistended. dressing over incision MUSCULOSKELETAL: No cyanosis, or edema. BACK: Nontender without obvious deformity. No CVA tenderness. Procedures s/p Laparoscopic assisted right colectomy 06/21/17 A/P Problem List: (1) Abdominal pain ICD Code: R10.9 - Unspecified abdominal pain (2) Adenocarcinoma of colon ICD Code: C18.9 - Malignant neoplasm of colon, unspecified Assessment and Plan 52-year-old man with Right sided abdominal pain Obstructing colon mass Moderately differentiated adenocarcinoma General surgery consulted and patient is s/p Laparoscopic assisted right colectomy 06/21/17 Continue pain treatments as needed Continue with clear liquid Leukocytosis Continue Flagyl Hypertension Continue baseline treatment DVT prophylaxis Angus Levy MD Jun 22, 2017 10:47
--- NOTE | 2017-06-22 11:45 | HHI.PR ---
Subjective Subjective Notes Tolerating clears, no nausea. Minimal pain. Ambulating. Objective Vitals/I&O Vital Signs Date Time Temp Pulse Resp B/P (MAP) Pulse Ox O2 Delivery O2 Flow Rate FiO2 06/22/17 08:00 98.0 69 17 121/75 (90) 99 06/21/17 16:12 21 06/21/17 11:39 Room Air 06/21/17 11:30 2 Labs Date/Time Source Procedure Growth Status 06/15/17 22:30 Stool Stool Cryptosporidium Exam - Final NEGATIVE - NO CRYPTOSPORIDIUM ANTIGEN... Complete 06/15/17 22:30 Stool Stool Stool Pus (RIGOBERTO) - Final NO WBC'S SEEN Complete 06/15/17 22:30 Stool Stool Giardia Antigen (RIGOBERTO) - Final NEGATIVE - NO GIARDIA ANTIGEN DETECTE... Complete Radiology Last Impressions Abdomen/Pelvis CT 06/15/17 0000 Signed Impressions: Service Date/Time: Thursday, June 15, 2017 09:06 - CONCLUSION: Abnormally ascending colon obstructive, most likely versus inflammatory.. There is some dilatation with bowel wall thickening. Trace ascites is evident. . Thomas Barriga MD FACR Narrative Exam NAD Abd: soft, inc c/d/i, TEMI dressing intact and functioning. A/P Assessment and Plan 52 yo M with near obstructing colon mass near hepatic flexure. Pathology has returned as invasive adenoca. POD 1 lap assisted right colectomy. Doing well post op. D/c IVF. Start soft diet. Tejinder Medrano MD Jun 22, 2017 11:45
[2017-06-22 12:00] VITALS: BP 105/68; PULSE 81; RESP 17; TEMP 98.2; O2SAT 98
[2017-06-22] MEDS: ENOXAPARIN SODIUM 40 MG/0.4 ML SYRINGE SQ SCH (12:01)
[2017-06-22 16:00] VITALS: BP 95/62; PULSE 96; RESP 17; TEMP 97.1; O2SAT 95
[2017-06-22] MEDS: LISINOPRIL 20 MG TAB PO SCH (17:18)
[2017-06-22] MEDS ORDERED: ALUMINUM/MAGNESIUM/SIMETH 30 ML CUP PO PRN (18:30)
[2017-06-22 20:06] VITALS: BP 141/91; PULSE 75; RESP 17; TEMP 97.1; O2SAT 98
[2017-06-23] VITALS (7 sets, daily range): BP systolic 117–156; BP diastolic 76–94; PULSE 72–92; RESP 17–20; TEMP 97.5–98; O2SAT 96–100
[2017-06-23] MEDS: ACETAMINOPHEN/HYDROcodone 325 MG/10 MG TAB PO PRN ×3 (03:58→18:55)
[2017-06-23] MEDS: amLODIPine BESYLATE 5 MG TAB PO SCH (06:05)
[2017-06-23] MEDS: KETOROLAC TROMETHAMINE 30 MG/ML (IVP) VIAL IV PUSH SCH ×4 (06:05→16:17)
[2017-06-23] MEDS: REMOVE OLD PATCH T-DERMAL SCH (08:20)
[2017-06-23] MEDS: SODIUM CHLORIDE 0.9% FLUSH 10 ML FLUSH IV FLUSH SCH ×2 (08:20→19:53)
[2017-06-23] MEDS: NICOTINE 21 MG/24 HR PATCH T-DERMAL SCH (08:20)
--- NOTE | 2017-06-23 09:33 | HHI.PR ---
Subjective Remarks Follow-up abdominal mass with obstruction June 20, 2017-patient seen and examined, denies any abdominal pain. Plan for surgery tomorrow June 21, 2017-patient seen and examined, he is status post colectomy. Stable. And denies any significant abdominal pain June 22, 2017-patient seen and examined, tolerating clear liquids without any competition of abdominal pain, nausea or vomiting. June 23, 2017-patient seen and examined, tolerating current diet. Ambulated without any abdominal pain, chest pain, shortness of breath Objective Vitals Vital Signs Date Time Temp Pulse Resp B/P (MAP) Pulse Ox O2 Delivery O2 Flow Rate FiO2 06/23/17 08:00 97.5 92 18 122/85 (97) 97 06/23/17 06:10 97.9 87 20 131/87 (102) 97 06/23/17 00:00 97.7 88 20 156/94 (114) 97 06/22/17 20:06 97.1 75 17 141/91 (108) 98 06/22/17 16:00 97.1 96 17 95/62 (73) 95 06/22/17 12:00 98.2 81 17 105/68 (80) 98 I/O 06/22/17 06/22/17 06/22/17 06/23/17 06/23/17 06/23/17 07:00 15:00 23:00 07:00 15:00 23:00 Intake Total 1440 ml 1200 ml Balance 1440 ml 1200 ml Intake Oral 240 ml 1200 ml IV Total 1200 ml # Voids 2 10 # Bowel Movements 0 Objective Remarks GENERAL: NAD SKIN: Warm and dry. HEAD: Normocephalic. EYES: No scleral icterus. No injection or drainage. NECK: Supple, trachea midline. No JVD or lymphadenopathy. CARDIOVASCULAR: Regular rate and rhythm without murmurs, gallops, or rubs. RESPIRATORY: Breath sounds equal bilaterally. No accessory muscle use. GASTROINTESTINAL: Abdomen soft, mildly tender, nondistended. dressing over incision MUSCULOSKELETAL: No cyanosis, or edema. BACK: Nontender without obvious deformity. No CVA tenderness. Procedures s/p Laparoscopic assisted right colectomy 06/21/17 A/P Problem List: (1) Abdominal pain ICD Code: R10.9 - Unspecified abdominal pain (2) Adenocarcinoma of colon ICD Code: C18.9 - Malignant neoplasm of colon, unspecified Assessment and Plan 52-year-old man with Right sided abdominal pain Obstructing colon mass Moderately differentiated adenocarcinoma General surgery consulted and patient is s/p Laparoscopic assisted right colectomy 06/21/17 with pathology positive for invasive adenocarcinoma Continue pain treatments as needed Continue with regular diet Leukocytosis-resolved Continue Flagyl Hypertension Continue baseline treatment DVT prophylaxis Angus Levy MD Jun 23, 2017 09:33
[2017-06-23] MEDS: ENOXAPARIN SODIUM 40 MG/0.4 ML SYRINGE SQ SCH (11:32)
--- NOTE | 2017-06-23 13:22 | HHI.PR ---
Subjective Subjective Notes Not feeling quite as well today. Had two bowel movts with some blood in them. Tolerating some solid diet. Objective Vitals/I&O Vital Signs Date Time Temp Pulse Resp B/P (MAP) Pulse Ox O2 Delivery O2 Flow Rate FiO2 06/23/17 12:00 97.5 77 17 130/76 (94) 98 06/23/17 10:39 21 06/21/17 11:39 Room Air 06/21/17 11:30 2 Labs Date/Time Source Procedure Growth Status 06/15/17 22:30 Stool Stool Cryptosporidium Exam - Final NEGATIVE - NO CRYPTOSPORIDIUM ANTIGEN... Complete 06/15/17 22:30 Stool Stool Stool Pus (RIGOBERTO) - Final NO WBC'S SEEN Complete 06/15/17 22:30 Stool Stool Giardia Antigen (RIGOBERTO) - Final NEGATIVE - NO GIARDIA ANTIGEN DETECTE... Complete Radiology Last Impressions Abdomen/Pelvis CT 06/15/17 0000 Signed Impressions: Service Date/Time: Thursday, June 15, 2017 09:06 - CONCLUSION: Abnormally ascending colon obstructive, most likely versus inflammatory.. There is some dilatation with bowel wall thickening. Trace ascites is evident. . Thomas Barriga MD FACR Narrative Exam NAD Abd: soft, inc c/d/i, TEMI dressing intact and functioning. Mild distention. A/P Assessment and Plan 52 yo M with near obstructing colon mass near hepatic flexure. Pathology has returned as invasive adenoca. POD 2 lap assisted right colectomy. Doing well post op. Cont soft diet. Monitor bowel movts. Will need to be free of blood prior to dc to be sure of no persistent anastomotic bleeding. Tejinder Medrano MD Jun 23, 2017 13:22
[2017-06-23] MEDS: FAMOTIDINE 20 MG TAB PO SCH ×2 (14:27→19:52)
[2017-06-23] MEDS: LISINOPRIL 20 MG TAB PO SCH (16:16)
[2017-06-23] MEDS: ONDANSETRON HCL 4 MG/2 ML VIAL IV PUSH PRN (16:20)
[2017-06-24] VITALS (7 sets, daily range): BP systolic 108–139; BP diastolic 60–85; PULSE 67–92; RESP 16–20; TEMP 97.4–98.8; O2SAT 96–99
[2017-06-24] MEDS: KETOROLAC TROMETHAMINE 30 MG/ML (IVP) VIAL IV PUSH SCH ×4 (00:24→16:12)
[2017-06-24] MEDS: amLODIPine BESYLATE 5 MG TAB PO SCH (07:00)
[2017-06-24] MEDS: FAMOTIDINE 20 MG TAB PO SCH ×2 (08:07→21:33)
[2017-06-24] MEDS: NICOTINE 21 MG/24 HR PATCH T-DERMAL SCH (08:08)
[2017-06-24] MEDS: SODIUM CHLORIDE 0.9% FLUSH 10 ML FLUSH IV FLUSH SCH ×2 (08:08→21:34)
[2017-06-24] MEDS: REMOVE OLD PATCH T-DERMAL SCH (08:08)
[2017-06-24] MEDS: ACETAMINOPHEN/HYDROcodone 325 MG/10 MG TAB PO PRN ×3 (09:11→18:55)
--- NOTE | 2017-06-24 09:48 | HHI.PR ---
Subjective Subjective Notes Tolerating diet well, no nausea. Had one normal bowel movt last night and then one bloody bowel movt. He is feeling much better today. Objective Vitals/I&O Vital Signs Date Time Temp Pulse Resp B/P (MAP) Pulse Ox O2 Delivery O2 Flow Rate FiO2 06/24/17 08:00 97.9 76 16 108/67 (81) 97 06/23/17 10:39 21 06/21/17 11:39 Room Air 06/21/17 11:30 2 Labs Date/Time Source Procedure Growth Status 06/15/17 22:30 Stool Stool Cryptosporidium Exam - Final NEGATIVE - NO CRYPTOSPORIDIUM ANTIGEN... Complete 06/15/17 22:30 Stool Stool Stool Pus (RIGOBERTO) - Final NO WBC'S SEEN Complete 06/15/17 22:30 Stool Stool Giardia Antigen (RIGOBERTO) - Final NEGATIVE - NO GIARDIA ANTIGEN DETECTE... Complete Radiology Last Impressions Abdomen/Pelvis CT 06/15/17 0000 Signed Impressions: Service Date/Time: Thursday, June 15, 2017 09:06 - CONCLUSION: Abnormally ascending colon obstructive, most likely versus inflammatory.. There is some dilatation with bowel wall thickening. Trace ascites is evident. . Thomas Barriga MD FACR Narrative Exam NAD Abd: soft, inc c/d/i, TEMI dressing intact and functioning. Mild distention. A/P Assessment and Plan 52 yo M with near obstructing colon mass near hepatic flexure. Pathology has returned as invasive adenoca. POD 3 lap assisted right colectomy. Tolerating diet, but having bloody bowel movts. Check CBC. Bowel movts need to be normal before discharge. Pathology has returned and I discussed it with him. T3N0. Will need to see oncology as outpatient in case of rec for chemotherapy due to T3 near obstructing tumor. Tejinder Medrano MD Jun 24, 2017 09:48
[2017-06-24 11:43] LABS: HEMATOCRIT 38.7 % (39.0-51.0); HEMOGLOBIN 13.4 GM/DL (13.0-17.0); MEAN CORPUSCULAR HEMOGLOBIN 32.5 PG (27.0-34.0); MEAN CORPUSCULAR HGB CONC 34.5 % (32.0-36.0); MEAN PLATELET VOLUME 8.7 FL (7.0-11.0); PLATELET COUNT 308 TH/MM3 (150-450); RED BLOOD COUNT 4.12 MIL/MM3 (4.50-5.90); RED CELL DISTRIBUTION WIDTH 12.3 % (11.6-17.2)
--- NOTE | 2017-06-24 11:56 | HHI.PR ---
Subjective Remarks Follow-up abdominal mass with obstruction June 20, 2017-patient seen and examined, denies any abdominal pain. Plan for surgery tomorrow June 21, 2017-patient seen and examined, he is status post colectomy. Stable. And denies any significant abdominal pain June 22, 2017-patient seen and examined, tolerating clear liquids without any competition of abdominal pain, nausea or vomiting. June 23, 2017-patient seen and examined, tolerating current diet. Ambulated without any abdominal pain, chest pain, shortness of breath June 24, 2017-patient seen and examined, had normal bowel movement yesterday however today patient had a bloody bowel movement Objective Vitals Vital Signs Date Time Temp Pulse Resp B/P (MAP) Pulse Ox O2 Delivery O2 Flow Rate FiO2 06/24/17 08:00 97.9 76 16 108/67 (81) 97 06/24/17 06:39 67 18 109/60 (76) 06/24/17 00:29 97.6 72 20 139/85 (103) 99 06/23/17 20:00 98.0 72 17 117/77 (90) 98 06/23/17 16:00 97.5 88 18 130/87 (101) 100 06/23/17 12:00 97.5 77 17 130/76 (94) 98 I/O 06/23/17 06/23/17 06/23/17 06/24/17 06/24/17 06/24/17 07:00 15:00 23:00 07:00 15:00 23:00 Intake Total 800 ml 240 ml Balance 800 ml 240 ml Intake Oral 800 ml 240 ml # Voids 3 2 # Bowel Movements 2 1 Result Diagram: 06/24/17 1033 Objective Remarks GENERAL: NAD SKIN: Warm and dry. HEAD: Normocephalic. EYES: No scleral icterus. No injection or drainage. NECK: Supple, trachea midline. No JVD or lymphadenopathy. CARDIOVASCULAR: Regular rate and rhythm without murmurs, gallops, or rubs. RESPIRATORY: Breath sounds equal bilaterally. No accessory muscle use. GASTROINTESTINAL: Abdomen soft, mildly tender, nondistended. dressing over incision MUSCULOSKELETAL: No cyanosis, or edema. BACK: Nontender without obvious deformity. No CVA tenderness. Procedures s/p Laparoscopic assisted right colectomy 06/21/17 A/P Problem List: (1) Abdominal pain ICD Code: R10.9 - Unspecified abdominal pain (2) Adenocarcinoma of colon ICD Code: C18.9 - Malignant neoplasm of colon, unspecified Assessment and Plan 52-year-old man with Right sided abdominal pain Obstructing colon mass Moderately differentiated adenocarcinoma General surgery consulted and patient is s/p Laparoscopic assisted right colectomy 06/21/17 with pathology positive for invasive adenocarcinoma We will consult medical oncology to set patient up for outpatient chemo Continue pain treatments as needed Continue with regular diet Leukocytosis-resolved d/c Flagyl Hypertension Continue baseline treatment DVT prophylaxis Angus Levy MD Jun 24, 2017 11:56
[2017-06-24] MEDS: LISINOPRIL 20 MG TAB PO SCH (16:12)
[2017-06-24] MEDS ORDERED: IOHEXOL 350 MG/ML 10 ML VIAL (for RAD DIAG) IVCONTRAST ONE (20:03)
--- NOTE | 2017-06-24 20:13 | RADRPT ---
EXAM DATE/TIME: 06/24/2017 19:54 [facility] COMPARISON: CT ABDOMEN & PELVIS W CONTRAST, June 15, 2017, 9:06. INDICATIONS : Evaluate for metastatic disease. IV CONTRAST: 70 cc Omnipaque 350 (iohexol) IV RADIATION DOSE: 11.15 CTDIvol (mGy) MEDICAL HISTORY : Cardiovascular disease. Hypertension. Carcinoma, colon. SURGICAL HISTORY : None. ENCOUNTER: Initial ACUITY: 1 day PAIN SCALE: 0/10 LOCATION: Bilateral chest TECHNIQUE: Volumetric scanning of the chest was performed. Using automated exposure control and adjustment of t he mA and/or kV according to patient size, radiation dose was kept as low as reasonably achievable to obtain optimal diagnostic quality images. DICOM format image data is available electronically for review and comparison. Follow-up recommendations for detected pulmonary nodules are based at a minimum on nodule size and pa tient risk factors according to Fleischner Society Guidelines. FINDINGS: LUNGS: There is no consolidation or pneumothorax. No concerning pulmonary nodule is visualized. PLEURA: There is no pleural thickening or pleural effusion. MEDIASTINUM: The heart and great vessels demonstrate no acute abnormality. There is no mediastinal or hilar lymph adenopathy. AXILLAE: Within normal limits. No lymphadenopathy. SKELETAL: Within normal limits for patient age. No lytic or sclerotic lesions are demonstrated. MISCELLANEOUS: Scattered free air seen in the visualized upper abdomen, not unexpected as the patient has had previo us abdominal surgery. I believe there may be an ileus. CONCLUSION: No metastatic disease or other acute abnormality of the chest. Dami Villatoro MD on June 24, 2017 at 20:09 Board Certified Radiologist. This report was verified electronically.
[2017-06-25] VITALS: BP 111/71; PULSE 87; RESP 17; TEMP 98; O2SAT 98
[2017-06-25] MEDS: KETOROLAC TROMETHAMINE 30 MG/ML (IVP) VIAL IV PUSH SCH ×5 (00:15→23:17)
[2017-06-25] MEDS: amLODIPine BESYLATE 5 MG TAB PO SCH (05:26)
[2017-06-25 05:40] LABS: IRON (FE) 19 MCG/DL (65-175)
[2017-06-25 06:05] LABS: % SATURATION IRON PROFILE 14.3 % (20-50); FERRITIN 160 NG/ML (26-388); FOLATE 7.3 NG/ML (3.1-17.5); TOTAL IRON BINDING CAPACITY 133 MCG/DL (250-450)
[2017-06-25 08:00] VITALS: BP 114/82; PULSE 121; RESP 17; TEMP 98.3; O2SAT 97
[2017-06-25] MEDS: SODIUM CHLORIDE 0.9% FLUSH 10 ML FLUSH IV FLUSH SCH ×2 (08:22→20:00)
[2017-06-25] MEDS: ACETAMINOPHEN/HYDROcodone 325 MG/10 MG TAB PO PRN (08:22)
[2017-06-25] MEDS: FAMOTIDINE 20 MG TAB PO SCH ×2 (08:22→20:00)
[2017-06-25] MEDS: REMOVE OLD PATCH T-DERMAL SCH (08:22)
[2017-06-25] MEDS: NICOTINE 21 MG/24 HR PATCH T-DERMAL SCH (08:23)
[2017-06-25] MEDS: ONDANSETRON HCL 4 MG/2 ML VIAL IV PUSH PRN ×2 (10:24→18:15)
[2017-06-25] MEDS ORDERED: HYDR-3516 PO (10:55)
--- NOTE | 2017-06-25 10:59 | HHI.PR ---
Subjective Subjective Notes Vomited last night around midnight. He thinks it was related to the chest CT. Still nauseated but better. Did not eat breakfast. He had two bowel movts yesterday that were nonbloody. Objective Vitals/I&O Vital Signs Date Time Temp Pulse Resp B/P (MAP) Pulse Ox O2 Delivery O2 Flow Rate FiO2 06/25/17 10:03 21 06/25/17 08:00 98.3 121 17 114/82 (93) 97 06/21/17 11:39 Room Air 06/21/17 11:30 2 Labs Laboratory Tests Test 06/25/17 04:21 Iron Level 19 Total Iron Binding Capacity 133 Percent Iron Saturation 14.3 Ferritin 160 Vitamin B12 Level 303 Folate 7.3 Date/Time Source Procedure Growth Status 06/15/17 22:30 Stool Stool Cryptosporidium Exam - Final NEGATIVE - NO CRYPTOSPORIDIUM ANTIGEN... Complete 06/15/17 22:30 Stool Stool Stool Pus (RIGOBERTO) - Final NO WBC'S SEEN Complete 06/15/17 22:30 Stool Stool Giardia Antigen (RIGOBERTO) - Final NEGATIVE - NO GIARDIA ANTIGEN DETECTE... Complete Radiology Last Impressions Abdomen/Pelvis CT 06/15/17 0000 Signed Impressions: Service Date/Time: Thursday, June 15, 2017 09:06 - CONCLUSION: Abnormally ascending colon obstructive, most likely versus inflammatory.. There is some dilatation with bowel wall thickening. Trace ascites is evident. . Thomas Barriga MD FACR Narrative Exam NAD Abd: soft, inc c/d/i, TEMI dressing intact and functioning. Mild distention. A/P Assessment and Plan 52 yo M with near obstructing colon mass near hepatic flexure. Pathology has returned as invasive adenoca. POD 4 lap assisted right colectomy. H/H stable, no more bloody BMs. Now with nausea and emesis last night. Probably will need to stay tonight unless tolerates diet later today and feel significantly better. D/w Dr. Marroquin. Chest CT negative for metastatic disease. Path- T3 N0. Dr. Melgar has been consulted from medical oncology. If discharged he will remove his TEMI dressing on Tuesday. Does not need C for this. Mitchell,Tejinder EUCEDA Jun 25, 2017 10:59
[2017-06-25 12:00] VITALS: BP 115/75; PULSE 103; RESP 19; TEMP 97.5; O2SAT 96
--- NOTE | 2017-06-25 12:29 | HHI.PR ---
Subjective Remarks Follow-up abdominal mass with obstruction June 20, 2017-patient seen and examined, denies any abdominal pain. Plan for surgery tomorrow June 21, 2017-patient seen and examined, he is status post colectomy. Stable. And denies any significant abdominal pain June 22, 2017-patient seen and examined, tolerating clear liquids without any competition of abdominal pain, nausea or vomiting. June 23, 2017-patient seen and examined, tolerating current diet. Ambulated without any abdominal pain, chest pain, shortness of breath June 24, 2017-patient seen and examined, had normal bowel movement yesterday however today patient had a bloody bowel movement June 25, 2017-patient seen and examined, had normal bowel movement. However have one episode of emesis last night and did not eat breakfast this a.m. Case discussed with Dr. Medrano Objective Vitals Vital Signs Date Time Temp Pulse Resp B/P (MAP) Pulse Ox O2 Delivery O2 Flow Rate FiO2 06/25/17 12:00 97.5 103 19 115/75 (88) 96 06/25/17 10:03 21 06/25/17 08:00 98.3 121 17 114/82 (93) 97 06/25/17 00:00 98.0 87 17 111/71 (84) 98 06/24/17 20:00 98.8 92 17 117/77 (90) 98 06/24/17 18:29 98 21 06/24/17 16:00 98.2 78 17 126/75 (92) 98 I/O 06/24/17 06/24/17 06/24/17 06/25/17 06/25/17 06/25/17 07:00 15:00 23:00 07:00 15:00 23:00 Intake Total 240 ml 800 ml Balance 240 ml 800 ml Intake Oral 240 ml 800 ml # Voids 2 4 # Bowel Movements 0 Result Diagram: 06/24/17 1033 Imaging Last Impressions Chest CT 06/24/17 0000 Signed Impressions: Service Date/Time: Saturday, June 24, 2017 19:54 - CONCLUSION: No metastatic disease or other acute abnormality of the chest. Dami Villatoro MD Abdomen/Pelvis CT 06/15/17 0000 Signed Impressions: Service Date/Time: Thursday, June 15, 2017 09:06 - CONCLUSION: Abnormally ascending colon obstructive, most likely versus inflammatory.. There is some dilatation with bowel wall thickening. Trace ascites is evident. . Thomas Barriga MD FACR Objective Remarks GENERAL: NAD SKIN: Warm and dry. HEAD: Normocephalic. EYES: No scleral icterus. No injection or drainage. NECK: Supple, trachea midline. No JVD or lymphadenopathy. CARDIOVASCULAR: Regular rate and rhythm without murmurs, gallops, or rubs. RESPIRATORY: Breath sounds equal bilaterally. No accessory muscle use. GASTROINTESTINAL: Abdomen soft, mildly tender, nondistended. dressing over incision MUSCULOSKELETAL: No cyanosis, or edema. BACK: Nontender without obvious deformity. No CVA tenderness. Procedures s/p Laparoscopic assisted right colectomy 06/21/17 A/P Problem List: (1) Abdominal pain ICD Code: R10.9 - Unspecified abdominal pain (2) Adenocarcinoma of colon ICD Code: C18.9 - Malignant neoplasm of colon, unspecified Assessment and Plan 52-year-old man with Right sided abdominal pain Obstructing colon mass Moderately differentiated adenocarcinoma General surgery consulted and patient is s/p Laparoscopic assisted right colectomy 06/21/17 with pathology positive for invasive adenocarcinoma Medical oncology has been consulted for outpatient chemo Continue pain treatments as needed Secondary to episode of emesis and decreased p.o. intake, will continue to monitor patient today. If symptoms improve will likely be discharged home. Case was discussed with Dr. Medrano Leukocytosis-resolved d/c Flagyl Hypertension Continue baseline treatment DVT prophylaxis Angus Levy MD Jun 25, 2017 12:29
--- NOTE | 2017-06-25 12:48 | MB ---
cc: Nicol Melgar MD, Tabitha N MD DATE: 06/24/2017 CHIEF COMPLAINT: PT3 N0 M0, stage II colon adenocarcinoma. HISTORY OF PRESENT ILLNESS: Mr. Smallwood is a 52-year-old gentleman with a history of hypertension who presented to the emergency room on 06/15/2017 with central and right-sided abdominal pain. He had a similar episode 2 weeks prior to admission. At that time, he thought that the pain was secondary to alcohol and he stopped drinking. The pain eventually subsided. Unfortunately, his pain returned the day of admission quite prominently and he presented to the emergency room. Patient reports that since the beginning of the year, he started having issues with pain and constipation. He denies having any hematochezia. CT scan of the abdomen and pelvis that was performed in the emergency room showed an abnormal ascending colon with inflammatory changes, bowel wall thickening and suspicious for an obstructive process. A mass cannot be excluded. He subsequently underwent a colonoscopy under the direction of Dr. Jara on 06/16/2017 which revealed duodenitis, gastritis in the antrum which was biopsy, colonoscopy with obstructive mass in the ascending colon, could not pass scope. Multiple biopsies performed. He then underwent laparoscopic-assisted right colectomy on 06/21/2016 under the direction of Dr. Medrano. He is recovering well from surgery. He is having regular bowel movements. He is eating a soft diet. He reports intermittent blood in his stool. He denies any nausea. PAST MEDICAL HISTORY: Hypertension. PAST SURGICAL HISTORY: 1. Hypertension 2. Status post CEA. SOCIAL HISTORY: The patient lives here in the [place] area and he has a good social support system with his and many siblings. He reports past alcohol abuse with drinking 6-8 beers per day. He quit 2 weeks prior to admission. He is currently an everyday smoker. FAMILY HISTORY: Second degree relative with history of brain cancer, uncertain of what type. REVIEW OF SYSTEMS: As above in the HPI, otherwise negative. HOSPITAL MEDICATIONS: 1. [place]. 2. Amlodipine. 3. Famotidine 4. Morphine sulfate 5. Ambien. LABORATORY STUDIES: White blood cell count 11.0, hemoglobin 13.4, MCV is 94.0 and a platelet count of 308,000. Chemistry studies with a creatinine of 0.81, a bilirubin of 0.5, AST 16, ALT 16, and alkaline phosphatase is 61. Total protein is 6.9, albumin is 3.3. CEA checked and was 1.1. PHYSICAL EXAMINATION: VITAL SIGNS: Temperature 98.2, pulse 78, respiratory rate 17, blood pressure 126/75, pulse oximetry 98% on room air. GENERAL: Well-developed, well-nourished man in no distress. NECK: Supple. No palpable lymphadenopathy. EYES: PERRLA, EOMI. No scleral icterus. Oropharynx clear. No lesions. CARDIOVASCULAR: Regular rate and rhythm. No murmurs. RESPIRATORY: Clear to auscultation bilaterally. ABDOMEN: Soft, nontender, nondistended. Midline surgical incision with bandage clean, dry and intact. EXTREMITIES: With no edema. NEUROLOGIC: Grossly nonfocal. PSYCHIATRIC: Appropriate in mood and affect. ASSESSMENT AND PLAN: PT3 N0 M0, stage II adenocarcinoma. Pathology with moderately differentiated adenocarcinoma, grade 2. All margins are uninvolved by invasive carcinoma. Lymphovascular invasion is not identified. Perineural invasion is not identified. No tumor deposits are identified. Zero out of 18 lymph nodes are positive for cancer. Discussed treatment of stage II colon adenocarcinoma with patient and family. Discussed NCCN guidelines. Discussed that in stage II colon cancer chemotherapy would be given in patients with high-risk features. In the patient's case, one prominent high risk features is bowel obstruction. We will ask pathology team to check MSI testing on his tumor. If he is found to be microsatellite unstable or MSI high, would not give adjuvant chemotherapy as studies have shown that these tumors have a good prognosis and are chemo resistant to 5-FU. If his tumor is found to be microsatellite stable, would give adjuvant Xeloda 2 weeks on and one week off for a total of six months of therapy. Reviewed side effects of Xeloda including diarrhea, hepatotoxicity, renal toxicity, decline in blood counts, electrolyte disturbance, hand/foot syndrome, skin rash. Discussed surveillance of colon cancer to include CBC, CMP, CEA every 3 months for 2-3 years followed by every 6 months for [address] scan of the chest, abdomen and pelvis to be obtained every 6 months. We will have the patient followup in clinic. Will order CT chest to complete staging. Will order vitamin B12, folate and iron studies. Inpatient oncology service will continue to follow. MD RITA Chawla/ , 06:39 PM , 07:05 PM ANGIE
--- NOTE | 2017-06-25 14:31 | PD.ONC.PN ---
Subjective Subjective Remarks Resting comfortably in bed Nausea/vomiting last night and early this morning. Objective Data Date Time Temp Pulse Resp B/P (MAP) Pulse Ox O2 Delivery O2 Flow Rate FiO2 06/25/17 12:00 97.5 103 19 115/75 (88) 96 06/25/17 10:03 21 06/25/17 08:00 98.3 121 17 114/82 (93) 97 06/25/17 00:00 98.0 87 17 111/71 (84) 98 06/24/17 20:00 98.8 92 17 117/77 (90) 98 06/24/17 18:29 98 21 06/24/17 16:00 98.2 78 17 126/75 (92) 98 Result Diagram: 06/24/17 1033 Laboratory Results Laboratory Tests Test 06/25/17 04:21 Iron Level 19 MCG/DL Total Iron Binding Capacity 133 MCG/DL Percent Iron Saturation 14.3 % Ferritin 160 NG/ML Vitamin B12 Level 303 PG/ML Folate 7.3 NG/ML Administered Medications Medications (Trade) Dose Ordered Sig/Brianna Route PRN Reason Start Time Stop Time Status Last Admin Dose Admin Enoxaparin Sodium (Lovenox Inj) 40 mg Q24H SQ 06/15/17 13:00 Future Hold 06/23/17 11:32 Magnesium Hydroxide (Milk Of Rishabh Cuellar) 30 ml Q12H PRN PO Mild constipation 06/15/17 11:30 06/23/17 08:20 Amlodipine Besylate (Norvasc) 5 mg DAILY@0700 PO 06/17/17 07:00 06/23/17 06:05 Lisinopril (Prinivil) 20 mg DAILY@1700 PO 06/16/17 17:00 06/24/17 16:12 Nicotine (Habitrol 21 Mg Patch.24 Hr) 1 patch DAILY T-DERMAL 06/17/17 09:00 06/25/17 08:23 Miscellaneous Information 1 DAILY T-DERMAL 06/17/17 09:00 06/25/17 08:22 Sodium Chloride (NS Flush) 2 ml BID IV FLUSH 06/21/17 21:00 06/25/17 08:22 Ondansetron HCl (Zofran Inj) 4 mg Q6H PRN IV PUSH NAUSEA OR VOMITING 06/21/17 11:00 06/25/17 10:24 Ketorolac Tromethamine (Toradol Inj) 30 mg Q6HR IV PUSH 06/21/17 12:00 06/26/17 11:59 06/25/17 05:26 Acetaminophen/ Hydrocodone Bitart ([place] 10-325 Mg) 1 tab Q4H PRN PO PAIN SCALE 6 TO 10 06/21/17 11:00 06/25/17 08:22 Al Hydrox/Mg Hydrox/Simethicone (Mag-Al Plus Susp Liq) 30 ml Q6H PRN PO DYSPEPSIA OR HEARTBURN 06/22/17 18:30 06/23/17 14:27 Famotidine (Pepcid) 20 mg Q12HR PO 06/23/17 14:30 06/25/17 08:22 Objective Remarks GENERAL: Well-nourished, well-developed patient. HEAD: Normocephalic. EYES: No scleral icterus. No injection or drainage. RESPIRATORY:No accessory muscle use. MUSCULOSKELETAL: Adequate muscle tone. NEUROLOGICAL: No obvious focal deficit. Awake, alert, and oriented x3. PSYCHIATRIC: Appropriate mood and affect; insight and judgment normal. Assessment/Plan Assessment 1. Stage II colon adenocarcinoma: pending MSI testing from pathology. He will need close follow up in oncology clinic to determine need for chemotherapy and to perform surveillance of colon cancer. 2. Vitamin B12 deficiency: started oral vitamin B12 supplementation. Nicol Melgar MD Jun 25, 2017 14:31
[2017-06-25 16:00] VITALS: BP 101/59; PULSE 99; RESP 18; TEMP 98.3; O2SAT 96
[2017-06-25] MEDS: LISINOPRIL 20 MG TAB PO SCH (17:00)
[2017-06-25] MEDS: CYANOCOBALAMIN 1,000 MCG TAB PO SCH (18:15)
[2017-06-25 20:00] VITALS: BP 122/78; PULSE 105; RESP 18; TEMP 98.1; O2SAT 97
[2017-06-26] VITALS: BP 127/86; PULSE 104; RESP 20; TEMP 97.6; O2SAT 100
[2017-06-26] MEDS: KETOROLAC TROMETHAMINE 30 MG/ML (IVP) VIAL IV PUSH SCH (05:46)
[2017-06-26] MEDS: amLODIPine BESYLATE 5 MG TAB PO SCH (05:46)
[2017-06-26 08:00] VITALS: BP 161/77; PULSE 92; RESP 17; TEMP 97.2; O2SAT 95
[2017-06-26] MEDS: FAMOTIDINE 20 MG TAB PO SCH (08:58)
[2017-06-26] MEDS: CYANOCOBALAMIN 1,000 MCG TAB PO SCH (08:58)
[2017-06-26] MEDS: NICOTINE 21 MG/24 HR PATCH T-DERMAL SCH (08:59)
[2017-06-26] MEDS: REMOVE OLD PATCH T-DERMAL SCH (08:59)
[2017-06-26] MEDS: SODIUM CHLORIDE 0.9% FLUSH 10 ML FLUSH IV FLUSH SCH (08:59)
--- NOTE | 2017-06-26 09:26 | HHI.PR ---
Subjective Subjective Notes pt comfortable no N/V pos BM Objective Vitals/I&O Vital Signs Date Time Temp Pulse Resp B/P (MAP) Pulse Ox O2 Delivery O2 Flow Rate FiO2 06/26/17 00:57 20 06/26/17 00:00 97.6 104 127/86 (100) 100 06/25/17 10:03 21 Labs Date/Time Source Procedure Growth Status 06/15/17 22:30 Stool Stool Cryptosporidium Exam - Final NEGATIVE - NO CRYPTOSPORIDIUM ANTIGEN... Complete 06/15/17 22:30 Stool Stool Stool Pus (RIGOBERTO) - Final NO WBC'S SEEN Complete 06/15/17 22:30 Stool Stool Giardia Antigen (RIGOBERTO) - Final NEGATIVE - NO GIARDIA ANTIGEN DETECTE... Complete Radiology Last Impressions Abdomen/Pelvis CT 06/15/17 0000 Signed Impressions: Service Date/Time: Thursday, June 15, 2017 09:06 - CONCLUSION: Abnormally ascending colon obstructive, most likely versus inflammatory.. There is some dilatation with bowel wall thickening. Trace ascites is evident. . Thomas Barriga MD FACR Abdomen: Post-op tenderness Extremities: Perfused Wound Wound : Wound Location: Abdomen Appearance: Clean & Dry A/P Assessment and Plan s/p lap assisted R colectomy doing well ok to D/c home from surgery perspective Newton Maier MD Jun 26, 2017 09:26
[2017-06-26] MEDS ORDERED: LISI-515 PO (09:33)
[2017-06-26] MEDS ORDERED: AMLO5 PO (09:33)
[2017-06-26] MEDS ORDERED: COLA100C5 PO (09:33)
--- NOTE | 2017-06-26 09:39 | HHI.PR ---
Subjective Remarks Follow-up abdominal mass with obstruction June 20, 2017-patient seen and examined, denies any abdominal pain. Plan for surgery tomorrow June 21, 2017-patient seen and examined, he is status post colectomy. Stable. And denies any significant abdominal pain June 22, 2017-patient seen and examined, tolerating clear liquids without any competition of abdominal pain, nausea or vomiting. June 23, 2017-patient seen and examined, tolerating current diet. Ambulated without any abdominal pain, chest pain, shortness of breath June 24, 2017-patient seen and examined, had normal bowel movement yesterday however today patient had a bloody bowel movement June 25, 2017-patient seen and examined, had normal bowel movement. However have one episode of emesis last night and did not eat breakfast this a.m. Case discussed with Dr. Medrano June 26, 2017-patient seen and examined, denies any nausea vomiting or abdominal pain with p.o. intake this morning. Normal bowel movement. Case discussed with Dr. Ross. Objective Vitals Vital Signs Date Time Temp Pulse Resp B/P (MAP) Pulse Ox O2 Delivery O2 Flow Rate FiO2 06/26/17 00:57 20 06/26/17 00:00 97.6 104 20 127/86 (100) 100 06/25/17 20:00 98.1 105 18 122/78 (93) 97 06/25/17 16:00 98.3 99 18 101/59 (73) 96 06/25/17 12:00 97.5 103 19 115/75 (88) 96 06/25/17 10:03 21 I/O 06/25/17 06/25/17 06/25/17 06/26/17 06/26/17 06/26/17 07:00 15:00 23:00 07:00 15:00 23:00 Intake Total 975 ml Output Total 4 ml Balance 971 ml Intake Oral 975 ml Output Urine Total 4 ml # Bowel Movements 2 Result Diagram: 06/24/17 1033 Imaging Last Impressions Chest CT 06/24/17 0000 Signed Impressions: Service Date/Time: Saturday, June 24, 2017 19:54 - CONCLUSION: No metastatic disease or other acute abnormality of the chest. Dami Villatoro MD Abdomen/Pelvis CT 06/15/17 0000 Signed Impressions: Service Date/Time: Thursday, June 15, 2017 09:06 - CONCLUSION: Abnormally ascending colon obstructive, most likely versus inflammatory.. There is some dilatation with bowel wall thickening. Trace ascites is evident. . Thomas Barriga MD FACR Objective Remarks GENERAL: NAD SKIN: Warm and dry. HEAD: Normocephalic. EYES: No scleral icterus. No injection or drainage. NECK: Supple, trachea midline. No JVD or lymphadenopathy. CARDIOVASCULAR: Regular rate and rhythm without murmurs, gallops, or rubs. RESPIRATORY: Breath sounds equal bilaterally. No accessory muscle use. GASTROINTESTINAL: Abdomen soft, mildly tender, nondistended. dressing over incision MUSCULOSKELETAL: No cyanosis, or edema. BACK: Nontender without obvious deformity. No CVA tenderness. Procedures s/p Laparoscopic assisted right colectomy 06/21/17 A/P Problem List: (1) Abdominal pain ICD Code: R10.9 - Unspecified abdominal pain (2) Adenocarcinoma of colon ICD Code: C18.9 - Malignant neoplasm of colon, unspecified Assessment and Plan 52-year-old man with Right sided abdominal pain Obstructing colon mass Moderately differentiated adenocarcinoma General surgery consulted and patient is s/p Laparoscopic assisted right colectomy 06/21/17 with pathology positive for invasive adenocarcinoma Medical oncology input appreciated, patient will follow outpatient Continue pain treatments as needed CT chest noted and reviewed by me without any metastases disease Leukocytosis-resolved s/p Flagyl Hypertension Continue baseline treatment DVT prophylaxis Angus Levy MD Jun 26, 2017 09:39
--- NOTE | 2017-06-26 09:40 | HHI.DS ---
Discharge Summary Admission Date Jun 15, 2017 at 11:17 Discharge Date: Jun 26, 2017 Admitting Diagnosis Large bowel obstruction versus colitis (1) Abdominal pain ICD Code: R10.9 - Unspecified abdominal pain (2) Adenocarcinoma of colon ICD Code: C18.9 - Malignant neoplasm of colon, unspecified Procedures s/p Laparoscopic assisted right colectomy 06/21/17 Brief History - From Admission 52-year-old male who presents to the ER today complaining of central and right- sided abdominal pain. He denies any fevers denies nausea, denies vomiting. He experienced a similar pain about 2 weeks ago and stopped drinking alcohol at that time. The pain subsided but has returned today worse than ever. He has no history of previous surgeries. 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 He denies any trauma to that area. CBC/BMP: 06/24/17 1033 Significant Findings Laboratory Tests Test 06/24/17 10:33 06/25/17 04:21 Red Blood Count 4.12 MIL/MM3 (4.50-5.90) Hematocrit 38.7 % (39.0-51.0) Iron Level 19 MCG/DL (65-175) Total Iron Binding Capacity 133 MCG/DL (250-450) Percent Iron Saturation 14.3 % (20-50) Imaging Last Impressions Chest CT 06/24/17 0000 Signed Impressions: Service Date/Time: Saturday, June 24, 2017 19:54 - CONCLUSION: No metastatic disease or other acute abnormality of the chest. Dami Villatoro MD Abdomen/Pelvis CT 06/15/17 0000 Signed Impressions: Service Date/Time: Thursday, June 15, 2017 09:06 - CONCLUSION: Abnormally ascending colon obstructive, most likely versus inflammatory.. There is some dilatation with bowel wall thickening. Trace ascites is evident. . Thomas Barriga MD FACR PE at Discharge GENERAL: NAD SKIN: Warm and dry. HEAD: Normocephalic. EYES: No scleral icterus. No injection or drainage. NECK: Supple, trachea midline. No JVD or lymphadenopathy. CARDIOVASCULAR: Regular rate and rhythm without murmurs, gallops, or rubs. RESPIRATORY: Breath sounds equal bilaterally. No accessory muscle use. GASTROINTESTINAL: Abdomen soft, mildly tender, nondistended. dressing over incision MUSCULOSKELETAL: No cyanosis, or edema. BACK: Nontender without obvious deformity. No CVA tenderness. Hospital Course While in hospital, patient was treated for: Right sided abdominal pain Obstructing colon mass Moderately differentiated adenocarcinoma General surgery consulted and patient was s/p Laparoscopic assisted right colectomy 06/21/17 with pathology positive for invasive adenocarcinoma Medical oncology input appreciated, patient will follow outpatient CT chest noted and reviewed by me without any metastases disease Leukocytosis-resolved s/p Flagyl Hypertension Treated with baseline treatment including Norvasc and lisinopril DVT prophylaxis Lovenox Pt Condition on Discharge: Good Discharge Disposition: Discharge Home Discharge Time: <= 30 minutes Discharge Instructions DIET: Follow Instructions for: As Tolerated, No Restrictions Activities you can perform: Regular-No Restrictions Follow up Referrals: Oncology PCP Follow-up - 1 Week Surgical - 10 Days with Tejinder Medrano MD New Medications: Docusate Sodium (Colace) 100 Mg Capsule 100 MG PO BID for Prevent Constipation, #60 CAP 0 Refills Hydrocodone-Acetaminophen (Hydrocodone-Acetaminophen) 5-325 mg Tab 1-2 TAB PO Q4H PRN for PAIN, #25 TAB 0 Refills Amlodipine (Norvasc) 5 Mg Tab 5 MG PO DAILY@0700 for Blood Pressure Management, #30 TAB 3 Refills Lisinopril (Lisinopril) 20 Mg Tab 20 MG PO DAILY@1700 for Blood Pressure Management, #30 TAB 3 Refills Continued Medications: [blood pressure ] () PO BID Discontinued Medications: Amlodipine (Amlodipine) 5 Mg Tab 5 MG PO DAILY@0700 for Blood Pressure Management, #30 TAB 0 Refills Lisinopril (Lisinopril) 20 Mg Tab 20 MG PO DAILY@1700, #30 TAB 0 Refills Angus Marroquin MD Jun 26, 2017 09:40
== END 2017-06-26 11:50 | disposition home or self-care (01) | DRG 330 ==
LOC: NEPE 07:43 → NEDA 11:17 → N07A 15:34
PROVIDERS: ADMIT Hospitalist; ATTEND Hospitalist
PROC: 0DB98ZX Excision of Duodenum, Via Natural or Artificial Opening Endoscopic, Diagnostic (ICD-10-PCS; 2017-06-16)
PROC: 0DB78ZX Excision of Stomach, Pylorus, Via Natural or Artificial Opening Endoscopic, Diagnostic (ICD-10-PCS; 2017-06-16)
PROC: 0DB38ZX Excision of Lower Esophagus, Via Natural or Artificial Opening Endoscopic, Diagnostic (ICD-10-PCS; 2017-06-16)
PROC: 0DBK8ZX Excision of Ascending Colon, Via Natural or Artificial Opening Endoscopic, Diagnostic (ICD-10-PCS; 2017-06-16)
PROC: 0DBB0ZZ Excision of Ileum, Open Approach (ICD-10-PCS; 2017-06-21)
PROC: 3E0T3BZ Introduction of Anesthetic Agent into Peripheral Nerves and Plexi, Percutaneous Approach (ICD-10-PCS; 2017-06-21)
PROC: 0DTF0ZZ Resection of Right Large Intestine, Open Approach (ICD-10-PCS; principal; 2017-06-21 07:31)
DX: C18.2 Malignant neoplasm of ascending colon (principal); K92.1 Melena; I10 Essential (primary) hypertension; F17.210 Nicotine dependence, cigarettes, uncomplicated; K29.70 Gastritis, unspecified, without bleeding; K29.80 Duodenitis without bleeding; K44.9 Diaphragmatic hernia without obstruction or gangrene; K20.9 Esophagitis, unspecified; D72.829 Elevated white blood cell count, unspecified; E53.8 Deficiency of other specified B group vitamins; K64.4 Residual hemorrhoidal skin tags; K64.8 Other hemorrhoids; Z86.73 Personal history of transient ischemic attack (TIA), and cerebral infarction without residual deficits
CPT/HCPCS: 71260; 74177; 80048; 80053; 81001; 82378; 82607; 82728; 82746; 83540; 83550; 83690; 85025; 85027; 85610; 86850; 86900; 86901; 87205; 87328; 87329; 87506; 88305; 88309; 88312; 93005; 94150; 99285; J0131; J0171; J0690; J1100; J1650; J1885; J2270; J2405; J2710; J2795; J3010; J7120; Q9967